=== PATIENT | male | born 1940 | race Caucasian/White ===

== ENCOUNTER 2016-07-20 14:09 | Observation (INO) | payer MEDICARE ==
[2016-07-20] MEDS ORDERED: Aspirin 81 MG Tab.Chew PO ONE (14:12)
[2016-07-20] MEDS ORDERED: Sodium Chloride 0.9% 10 ML Syringe FLUSH PRN (14:12)
[2016-07-20] MEDS ORDERED: Sodium Chloride 0.9% 2.5 ML Syringe FLUSH PRN (14:12)
[2016-07-20] MEDS ORDERED: Famotidine 20 MG/2 ML SDV IVPUSH ONE (14:12)
[2016-07-20] MEDS ORDERED: Ketorolac 30 MG/ML SDV IVPUSH ONE (14:12)
[2016-07-20] MEDS: Nitroglycerin 0.4 MG Tab.SL SL SCH ×2 (14:51→18:39)
--- NOTE | 2016-07-20 15:04 | EDM.PDOC ---
<Dharmesh Thomas - Last Filed: 07/20/16 15:39> ED HISTORY OF PRESENT ILLNESS - General Chief Complaint: Cardiovascular Problem Stated Complaint: CHEST PAINS Time Seen by Provider: 07/20/16 14:10 Source of Information: Reports: Patient History Limitations: Reports: No limitations - History of Present Illness INITIAL COMMENTS - FREE TEXT/NARRATIVE: History of present illness: [76 year old male was in dialysis and started having pain in left shoulder. They subsequently discontinued dialysis and sent him here to be evaluated further. Patient has a known history of CABG as well as a bout of pericarditis. Patient indicates his CABG was a four-vessel bypass and then subsequently he later had to have 2 stents placed. Patient has had this pain in the past with one nitroglycerin relieving the pain. Patient had left shoulder pain and a cough before dialysis and they elected not to intervene but sent him here for intervention and further evaluation.] Review of systems: As per history of present illness and below otherwise all systems reviewed and negative. Past medical history: As per history of present illness and as reviewed below otherwise noncontributory. Surgical history: As per history of present illness and as reviewed below otherwise noncontributory. Social history: No reported history of drug or alcohol abuse. Family history: As per history of present illness and as reviewed below otherwise noncontributory. Physical exam: HEENT: Atraumatic, normocephalic, pupils reactive, negative for conjunctival pallor or scleral icterus, mucous membranes moist, throat clear, neck supple, nontender, trachea midline. Lungs: Clear to auscultation, breath sounds equal bilaterally, chest nontender. Heart: S1S2, regular, negative for clicks, rubs, or JVD. Abdomen: Soft, nondistended, nontender. Negative for masses or hepatosplenomegaly. Negative for costovertebral tenderness. Pelvis: Stable nontender. Genitourinary: Deferred. Rectal: Deferred. Extremities: Atraumatic, negative for cords or calf pain. Neurovascular unremarkable. Neuro: Awake, alert, oriented. Cranial nerves II through XII unremarkable. Cerebellum unremarkable. Motor and sensory unremarkable throughout. Exam nonfocal. Nitroglycerin given to patient secondary to efficacy in the past with left shoulder pain. At this time patient is equivocal and his indication of pain relief. He indicates to myself that it is significantly better yet he tells the nurse that is unchanged he also has told the attending physician that he is pain -free. Dr. King evaluated the EKG and felt that the EKG was a concerning for an acute event. Diagnostics: [CBC, CMP, BNP, troponin, chest x-ray] Therapeutics: [Nitroglycerin, Hep-Lock, normal saline bolus, morphine] Impression: [Chest pain, left lower lobe infiltrate] Plan: [Admit for observation] Definitive disposition and diagnosis as appropriate pending reevaluation and review of above. - Related Data Home Meds: Home Meds Acetaminophen [Acetaminophen ER] 650 mg PO TID PRN 07/20/16 [History] Amino Acids/Protein Hydrolys [Prosource No Carb Liquid Pkt] 30 ml PO TID [History] Ascorbate Calcium [Vitamin C] 500 mg PO DAILY 07/20/16 [History] Aspirin [Halfprin] 81 mg PO DAILY 07/20/16 [History] Biotin/FA/Vit C/Vit B Complex [Nephrocaps] 1 cap PO DAILY 07/20/16 [History] Clopidogrel [Plavix] 75 mg PO DAILY 07/20/16 [History] Loperamide [Imodium AD] 2 mg PO ASDIRECTED PRN 07/20/16 [History] Nitroglycerin 0.4 mg SL ASDIRECTED PRN 07/20/16 [History] Pantoprazole Sodium [Protonix] 40 mg PO DAILY 07/20/16 [History] Petrolatum,White [Vaseline] 1 dose TP PRN 07/20/16 [History] ED ROS GENERAL - Review of Systems Review Of Systems: See Below ED EXAM, GENERAL - Physical Exam Exam: See Below (History of present illness) Course - Vital Signs Last Recorded V/S: Last Vital Signs Temp 36.7 C 07/20/16 14:11 Pulse 62 07/20/16 15:07 Resp 18 07/20/16 15:07 BP 111/52 L 07/20/16 15:07 Pulse Ox 96 07/20/16 15:07 - Orders/Labs/Meds Orders: Active Orders 24 hr Category Date Time Status Patient Status [ADT] Stat ADT 07/20/16 15:41 Active EKG Documentation Completion [RC] STAT Care 07/20/16 14:14 Active Levofloxacin/Dextrose 5%-Water [Levaquin in D5W 750 MG/ Med 07/20/16 15:29 Active 150 ML] 750 mg Premix Bag 1 bag IV ONETIME Sodium Chloride 0.9% [Normal Saline] 1,000 ml Med 07/20/16 15:11 Active IV .Bolus Sodium Chloride 0.9% [Saline Flush] Med 07/20/16 14:12 Active 10 ml FLUSH ASDIRECTED PRN Sodium Chloride 0.9% [Saline Flush] Med 07/20/16 14:12 Active 2.5 ml FLUSH ASDIRECTED PRN Saline Lock Insert [OM.PC] Stat Oth 07/20/16 14:12 Ordered Medication Orders Sodium Chloride (Normal Saline) 1,000 mls @ 999 mls/hr IV .Bolus ONE Stop: 07/20/16 16:11 Last Admin: 07/20/16 15:12 Dose: 999 mls/hr Levofloxacin/Dextrose 750 mg/ (Premix) 150 mls @ 100 mls/hr IV ONETIME ONE Stop: 07/20/16 16:58 Sodium Chloride (Saline Flush) 10 ml FLUSH ASDIRECTED PRN PRN Reason: Keep Vein Open Sodium Chloride (Saline Flush) 2.5 ml FLUSH ASDIRECTED PRN PRN Reason: Keep Vein Open Labs: Laboratory Tests 07/20/16 07/20/16 07/20/16 Range/Units 14:18 14:18 14:18 WBC 10.23 (4.0-11.0) K/uL RBC 3.64 L (4.50-5.90) M/uL Hgb 11.1 L (13.0-17.0) g/dL Hct 35.4 L (38.0-50.0) % MCV 97.3 (80.0-98.0) fL MCH 30.5 (27.0-32.0) pg MCHC 31.4 (31.0-37.0) g/dL RDW Std Deviation 59.2 (28.0-62.0) fl RDW Coeff of Becka 17 H (11.0-15.0) % Plt Count 127 L (150-400) K/uL MPV 11.40 (7.40-12.00) fL Neut % (Auto) 80.6 H (48.0-80.0) % Lymph % (Auto) 6.4 L (16.0-40.0) % [place] % (Auto) 10.3 (0.0-15.0) % Eos % (Auto) 2.2 (0.0-7.0) % Baso % (Auto) 0.5 (0.0-1.5) % Neut # (Auto) 8.3 H (1.4-5.7) K/uL Lymph # (Auto) 0.7 (0.6-2.4) K/uL [place] # (Auto) 1.1 H (0.0-0.8) K/uL Eos # (Auto) 0.2 (0.0-0.7) K/uL Baso # (Auto) 0.1 (0.0-0.1) K/uL Nucleated RBC % 0.0 /100WBC Nucleated RBCs # 0 K/uL INR 1.08 (0.86-1.11) Sodium 136 (136-146) mmol/L Potassium 4.3 (3.5-5.1) mmol/L Chloride 97 L (98-110) mmol/L Carbon Dioxide 26 (21-31) mmol/L BUN 24 H (6.0-23.0) mg/dL Creatinine 2.4 H (0.6-1.5) mg/dL Est Cr Clr Drug Dosing 29.00 mL/min Estimated GFR (MDRD) 26.5 ml/min Glucose 185 H (60-110) mg/dL Calcium 7.4 L (8.8-10.8) mg/dL Magnesium (1.5-2.3) mEq/L Total Bilirubin 0.8 (0.1-1.5) mg/dL AST 25 (5-40) IU/L ALT 17 (8-54) IU/L Alkaline Phosphatase 121 (40-150) Troponin I (0.0-0.29) NG/ML B-Natriuretic Peptide (<100) PG/ML Total Protein 7.0 (6.0-8.0) g/dL Albumin 3.3 L (3.4-4.8) g/dL Globulin 3.7 H (2.0-3.5) g/dL Albumin/Globulin Ratio 0.9 L (1.3-2.8) Amylase 36 (10-90) U/L Lipase 60 (7-80) U/L 04/19/17 04/19/17 04/19/17 Range/Units 14:18 14:18 14:18 WBC (4.0-11.0) K/uL RBC (4.50-5.90) M/uL Hgb (13.0-17.0) g/dL Hct (38.0-50.0) % MCV (80.0-98.0) fL MCH (27.0-32.0) pg MCHC (31.0-37.0) g/dL RDW Std Deviation (28.0-62.0) fl RDW Coeff of Becka (11.0-15.0) % Plt Count (150-400) K/uL MPV (7.40-12.00) fL Neut % (Auto) (48.0-80.0) % Lymph % (Auto) (16.0-40.0) % [place] % (Auto) (0.0-15.0) % Eos % (Auto) (0.0-7.0) % Baso % (Auto) (0.0-1.5) % Neut # (Auto) (1.4-5.7) K/uL Lymph # (Auto) (0.6-2.4) K/uL [place] # (Auto) (0.0-0.8) K/uL Eos # (Auto) (0.0-0.7) K/uL Baso # (Auto) (0.0-0.1) K/uL Nucleated RBC % /100WBC Nucleated RBCs # K/uL INR (0.86-1.11) Sodium (136-146) mmol/L Potassium (3.5-5.1) mmol/L Chloride (98-110) mmol/L Carbon Dioxide (21-31) mmol/L BUN (6.0-23.0) mg/dL Creatinine (0.6-1.5) mg/dL Est Cr Clr Drug Dosing mL/min Estimated GFR (MDRD) ml/min Glucose (60-110) mg/dL Calcium (8.8-10.8) mg/dL Magnesium 1.2 L (1.5-2.3) mEq/L Total Bilirubin (0.1-1.5) mg/dL AST (5-40) IU/L ALT (8-54) IU/L Alkaline Phosphatase (40-150) Troponin I 0.10 (0.0-0.29) NG/ML B-Natriuretic Peptide 633 H (<100) PG/ML Total Protein (6.0-8.0) g/dL Albumin (3.4-4.8) g/dL Globulin (2.0-3.5) g/dL Albumin/Globulin Ratio (1.3-2.8) Amylase (10-90) U/L Lipase (7-80) U/L Meds: Medications Generic Name Dose Route Start Last Admin Trade Name Freq PRN Reason Stop Dose Admin Sodium Chloride 1,000 mls @ 999 mls/hr 07/20/16 15:11 07/20/16 15:12 Normal Saline IV 07/20/16 16:11 999 mls/hr .Bolus ONE Administration Levofloxacin/Dextrose 750 mg/ 150 mls @ 100 mls/hr 07/20/16 15:29 Premix IV 07/20/16 16:58 ONETIME ONE Sodium Chloride 10 ml 07/20/16 14:12 Saline Flush FLUSH ASDIRECTED PRN Keep Vein Open Sodium Chloride 2.5 ml 07/20/16 14:12 Saline Flush FLUSH ASDIRECTED PRN Keep Vein Open Discontinued Medications Generic Name Dose Route Start Last Admin Trade Name Barbara PRN Reason Stop Dose Admin Aspirin 324 mg 07/20/16 14:12 07/20/16 14:46 Aspirin PO 07/20/16 14:13 Not Given ONETIME ONE Famotidine 20 mg 07/20/16 14:12 07/20/16 14:31 Pepcid IVPUSH 07/20/16 14:13 20 mg ONETIME ONE Administration Ketorolac Tromethamine 30 mg 07/20/16 14:12 07/20/16 14:30 Toradol IVPUSH 07/20/16 14:13 30 mg ONETIME ONE Administration Morphine Sulfate 2 mg 07/20/16 15:21 07/20/16 15:27 Morphine IV 07/20/16 15:22 2 mg ONETIME ONE Administration Nitroglycerin 0.4 mg 07/20/16 14:45 07/20/16 14:51 Nitrostat SL 07/20/16 14:56 0.4 mg Q5M ALMA Administration Departure - Departure Time of Disposition: 15:39 Disposition: Admitted As Inpatient 66 Condition: good Clinical Impression: Chest pain Forms: ED Department Discharge - My Orders Last 24 Hours: My Active Orders 07/20/16 15:11 Sodium Chloride 0.9% [Normal Saline] 1,000 ml IV .Bolus - Assessment/Plan Last 24 Hours: My Active Orders 07/20/16 15:11 Sodium Chloride 0.9% [Normal Saline] 1,000 ml IV .Bolus <Deena Littlejohn - Last Filed: 07/20/16 15:55> ED HISTORY OF PRESENT ILLNESS - History of Present Illness INITIAL COMMENTS - FREE TEXT/NARRATIVE: This is Dr. Littlejohn dictating an addendum note as a supervising physician on this case. The patient was personally seen by me and evaluated and agree with history and physical as above. The patient is not the best historian and seems to vacillate on his pain and his history that makes it unclear exactly what is experiencing. He does have a history of a CABG done 4 years ago at the [facility] and recently had an admission at [facility] from July 02 to July 13 for which she was treated for fluid overload metabolic encephalopathy and his chronic renal disease. The patient resides at [facility] and they state that when he has had the shoulder pain yesterday they gave him a sublingual nitroglycerin and improved and he was also given a sublingual nitroglycerin in dialysis on Monday. The dialysis nurse stated that they did not give the nitroglycerin today because he just finished his dialysis and his blood pressure was on the low side. The patient states that he will have periods of time only will have the shoulder pain for many days in row and then other times he doesn't have the pain. He says that but since he has been here in the ED the pain is significantly improved and she is currently sleeping in the ER. All labs were reviewed and chest x-ray was also reviewed. It is unclear if this left lower lobe process infiltrate or atelectasis but to avoid and treat appropriately. The case was discussed with the hospitalist Dr. Pruitt who will admit the patient and request Levaquin to be given.
--- NOTE | 2016-07-20 15:06 | CR ---
EXAMINATION: Two-view chest (PA and Lateral views). HISTORY: Chest pain. FINDINGS: The trachea is midline. The heart is normal in size. There is a right-sided dialysis catheter noted. Median sternotomy wires are noted. There is left basilar atelectasis and/or infiltrate noted on the lateral film. Mild elevation and flattening of the left hemidiaphragm. Trace bilateral pleural effu sions are not excluded. Osseous structures appear osteopenic. IMPRESSION: 1. Left basilar atelectasis and/or infiltrate with likely a trace pleural effusion.
[2016-07-20] MEDS ORDERED: Sodium Chloride 0.9% 1,000 ML IV ONE (15:11)
[2016-07-20] MEDS ORDERED: Morphine 10 MG/ML Syringe IV ONE (15:21)
[2016-07-20] MEDS ORDERED: Levofloxacin/Dextrose 5%-Water 750 MG in Premix Bag 1 BAG IV ONE (15:29)
--- NOTE | 2016-07-20 16:02 | PCM.HP ---
H&P History of Present Illness - General Date of Service: 07/20/16 Admit Problem/Dx: L shoulder pain, LLL infiltrate Source of Information: Patient, shelter records - History of Present Illness Initial Comments - Free Text/Narative: This 76 year old male with extensive pmh including recent placement of 2 stents secondary to CAD 1 week ago, hx of 3 bypass CABG, recent diagnosis of DVT to L leg, end stage renal disease on dialysis, DM type 2, and ischemic cardiomyopathy presented to the ED today from renal dialysis for complaints of L shoulder pain. He and reports the past couple days he has had pain to L shoulder and scapula region and has been given nitro which has helped with his pain. Today the renal dialysis staff was concerned and wanted him to be evaluated in the ED. Alcides is confused at baseline and is a poor historian, he reports the nitro x1 helped with his pain and now it is only a discomfort. No dyspnea or palpitations noted. No radiation of pain. His reports this complaint of L shoulder pain has been consistent with what his cardiac pain has been. She reports in his recent hospitalization in [place], he had similar episode with negative EKG and troponins, Dr Minaya performed an angiogram which revealed blockages of one bypass and another artery, when then two new stents were placed. He reports having frequent bloody noses since discharge from [place] and reports a productive cough which started 2 or 3 days ago. No noted fevers/ chills. No abdominal pain. Does have multiple sores and abrasions to feet. 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 blistering and deep tissue injuries noted to bilateral heels. L greater than R. reports a DVT was noted to L leg during hospitalization and he was given a "clot buster". In the ED WBC 10,230, Hgb 11.1, BUN 24, Cr 2.4. Platelets 127. EKG SR rate in the 60s, LVH noted. Given 1 SL nitro which helped lower pain to 1/10. reports he is at baseline mentation, slightly confused and easily falling asleep. I did speak with her regarding code status. On [facility] paperwork we received he is noted as Code 3, DNR. But in speaking with them prior to seeing this paperwork, they both agreed they want everything done, including CPR, intubation /mechanical ventilation and medications given in the event of cardiac arrest. If it happens that he would not wake up or to be "kept alive on the ventilator" then they would not want that. So at this time he will be a FULL CODE. 1715: Dr. Pruitt notified with update on patient and pmh. He will be in to see patient shortly. Left Shoulder Pain Score (Numeric/FACES): 10 - Related Data Allergies/Adverse Reactions: Allergies Allergy/AdvReac Type Severity Reaction Status Date / Time iodine Allergy Other Verified 07/20/16 16:26 enteric coat medications Allergy Other Uncoded 07/20/16 16:26 glue Allergy Other Uncoded 07/20/16 16:26 Home Medications: Home Meds Acetaminophen [Acetaminophen ER] 650 mg PO TID PRN 07/20/16 [History] Amino Acids/Protein Hydrolys [Prosource No Carb Liquid Pkt] 30 ml PO TID [History] Ascorbate Calcium [Vitamin C] 500 mg PO DAILY 07/20/16 [History] Aspirin [Halfprin] 81 mg PO DAILY 07/20/16 [History] Biotin/FA/Vit C/Vit B Complex [Nephrocaps] 1 cap PO DAILY 07/20/16 [History] Clopidogrel [Plavix] 75 mg PO DAILY 07/20/16 [History] Loperamide [Imodium AD] 2 mg PO ASDIRECTED PRN 07/20/16 [History] Nitroglycerin 0.4 mg SL ASDIRECTED PRN 07/20/16 [History] Pantoprazole Sodium [Protonix] 40 mg PO DAILY 07/20/16 [History] Petrolatum,White [Vaseline] 1 dose TP PRN 07/20/16 [History] Past Medical History Cardiovascular History: Reports: Arrhythmia, Blood clots/VTE/DVT, CAD, Cardiomyopathy, MT, PVD, Other (see below) Other Cardiovascular History: pericarditis Respiratory History: Reports: None Gastrointestinal History: Reports: None. Denies: GERD, GI bleed Genitourinary History: Reports: Acute renal failure, Chronic renal insuffiency, Dialysis, Diabetic nephropathy Psychiatric History: Reports: None Endocrine/Metabolic History: Reports: Diabetes, type II Hematologic History: Reports: Anemia, Iron deficiency Oncologic (Cancer) History: Reports: None - Past Surgical History Cardiovascular Surgical History: Reports: Coronary artery bypass, Coronary artery stent, Vascular surgery (L leg) GI Surgical History: Reports: None Musculoskeletal Surgical History: Reports: Other (see below) Other Musculoskeletal Surgeries/Procedures:: left fifth toe amputation Social & Family History - Family History Family Medical History: Noncontributory - Tobacco Use Smoking Status *Q: Never Smoker - Caffeine Use Caffeine Use: Reports: Coffee - Recreational Drug Use Recreational Drug Use: No - Living Situation & Occupation Living situation: Reports: Occupation: retired H&P Review of Systems - Review of Systems: Review Of Systems: See Below General: Denies: fever, chills, malaise HEENT: Reports: no symptoms. Denies: headaches, sinus congestion, sore throat Pulmonary: Reports: Cough, Sputum (blood tinged (has been having bloody noses) and green in color). Denies: Shortness of Breath Cardiovascular: Reports: chest pain (L shoulder and scapular pain), dyspnea on exertion, edema. Denies: palpitations, lightheadedness, syncope Gastrointestinal: Reports: No symptoms. Denies: Black stool, Bloody stool, Nausea, Vomiting Genitourinary: Reports: no symptoms. Denies: dysuria, frequency, burning Skin: Reports: wound (sacral ulcer(healing), new heel and foot abrasions. ) Neurological: Reports: Confusion ( reports him at baseline) Hematologic/Lymphatic: Reports: anemia Immunologic: Reports: no symptoms Exam - Exam Exam: See Below - Vital Signs Vital Signs: Last Vital Signs Temp 98.0 F 07/20/16 14:11 Pulse 62 07/20/16 15:07 Resp 18 07/20/16 15:07 BP 111/52 L 07/20/16 15:07 Pulse Ox 96 07/20/16 15:07 Weight: 78.3 kg - Exam General: alert, oriented, cooperative HEENT: Conjunctiva clear, Mucosa moist & pink, Posterior pharynx clear, Pupils reactive Neck: supple, trachea midline. No: lymphadenopathy, JVD Lungs: Clear to auscultation, Normal respiratory effort Cardiovascular: regular rate, regular rhythm, normal S1, normal S2. No: irregular rhythm, systolic murmur Abdomen: normal bowel sounds, soft. No: organomegaly, tenderness Extremities: edema (+2 pitting to L lower leg, ankle and foot +2 pitting to R ankle and foot.). No: normal pulses Peripheral Pulses: 1+: posterior tibial (L), posterior tibial (R), dorsalis pedis (L), dorsalis pedis (R) Skin: warm, dry, wound (healing sacral ulcer, blanchable, small abrasion noted, no drainage. Open region noted to sacral cleft and tape [place] noted from past dressings surrounding wound. L heel noted to be red, non blanchable with blister. L heel purple blue deep tissue injury noted, small blister. Blood filled blisters x 3 noted to L anterior ankle. Scattered abrasions noted to multiple toes.). No: intact Neuro Extensive - Mental Status: alert, normal mood/affect (per , she states he is baseline mentation, alert, but slightly disoriented and will easily forget direction), normal cognition. No: oriented x3 Neuro Extensive - Motor, Sensory, Reflexes: CN II-XII intact. No: normal gait ( weak and deconditioned due to recent hospitalization) Psychiatric: alert, normal affect, normal mood - Patient Data Result Diagrams: 07/20/16 14:18 07/20/16 14:18 EKG INTERPRETATION EKG Date: 07/20/16 Time: 14:09 Rhythm: NSR Rate (beats/min): 66 [place]: LAD-left axis deviation P-wave: present QRS: LBBB ST-T: elevated (V1-3) Comparison: NA - no prior EKG *Q Meaningful Use (ADM) - VTE *Q VTE Criteria *Q: - VTE Risk Assess *Q Each Risk Factor Represents 1 Point: History of Prior Major Surgery, Swollen Legs, Current, Serious Lung Disease Including Pneumonia, Less than 1 Month Total Score 1 Point Risk Factors: 3 Each Risk Factor Represents 2 Points: None Total Score 2 Point Risk Factors: 0 Each Risk Factor Represents 3 Points: Age 75 Years or Greater, History Superficial Venous Thrombosis, DVT or PE Total Score 3 Point Risk Factors: 6 Each Risk Factor Represents 5 Points: None Total Score 5 Point Risk Factors: 0 Venous Thromboembolism Risk Factor Score *Q: 9 - Stroke *Q Stroke Criteria *Q: - AMI *Q AMI Criteria *Q: - Problem List (1) Chest pain SNOMED Code(s): 37974795 ICD Code: R07.9 - CHEST PAIN, UNSPECIFIED Status: Acute Current Visit: Yes (2) HCAP (healthcare-associated pneumonia) SNOMED Code(s): 235560867 ICD Code: J18.9 - PNEUMONIA, UNSPECIFIED ORGANISM Status: Acute Current Visit: Yes (3) Hx of CABG SNOMED Code(s): 828668739, 221281410 ICD Code: Z95.1 - PRESENCE OF AORTOCORONARY BYPASS GRAFT Status: Chronic Current Visit: Yes (4) History of coronary artery stent placement SNOMED Code(s): 177416796, 039997556 ICD Code: Z95.5 - PRESENCE OF CORONARY ANGIOPLASTY IMPLANT AND GRAFT Status : Chronic Current Visit: Yes Problem Details: 2 stents placed July 2016 in [place] (5) DM type 2 (diabetes mellitus, type 2) SNOMED Code(s): 49871227 ICD Code: E11.9 - TYPE 2 DIABETES MELLITUS WITHOUT COMPLICATIONS Status: Chronic Current Visit: Yes Qualifiers: Diabetes mellitus complication status: with kidney complications Diabetes mellitus complication detail: with nephropathy Diabetes mellitus intermediate school teacher insulin use: without fci use Qualified Code(s): E11.21 - Type 2 diabetes mellitus with diabetic nephropathy (6) End stage renal disease on dialysis SNOMED Code(s): 302624602 ICD Code: N18.6 - END STAGE RENAL DISEASE; Z99.2 - DEPENDENCE ON RENAL DIALYSIS Status: Chronic Current Visit: Yes (7) Ischemic cardiomyopathy SNOMED Code(s): 638457103 ICD Code: I25.5 - ISCHEMIC CARDIOMYOPATHY Status: Chronic Current Visit: Yes (8) Neuropathy due to type 2 diabetes mellitus SNOMED Code(s): 010970477796020, 222705000379932 ICD Code: E11.40 - TYPE 2 DIABETES MELLITUS WITH DIABETIC NEUROPATHY, UNSP Status: Chronic Current Visit: Yes (9) CAD (coronary artery disease) SNOMED Code(s): 24694990 ICD Code: I25.10 - ATHSCL HEART DISEASE OF [place] CORONARY ARTERY W/O ANG PCTRS Status: Chronic Current Visit: Yes Qualifiers: Coronary Disease-Associated Artery/Lesion type: bypass graft [place] vs. transplanted heart: [place] heart Associated angina: with stable angina Qualified Code(s): I25.708 - Atherosclerosis of coronary artery bypass graft(s) , unspecified, with other forms of angina pectoris (10) PVD (peripheral vascular disease) SNOMED Code(s): 029743064 ICD Code: I73.9 - PERIPHERAL VASCULAR DISEASE, UNSPECIFIED Status: Chronic Current Visit: Yes (11) Heel ulcer SNOMED Code(s): 249699980 ICD Code: L97.409 - NON-PRS CHRONIC ULCER OF UNSP HEEL AND MIDFOOT W UNSP SEVERT Status: Acute Current Visit: Yes Qualifiers: Laterality: unspecified laterality Non-pressure ulcer stage: unspecified non-pressure ulcer stage Qualified Code(s): L97.409 - Non-pressure chronic ulcer of unspecified heel and midfoot with unspecified severity (12) Sacral ulcer SNOMED Code(s): 52250682, 739427017 ICD Code: L98.499 - NON-PRESSURE CHRONIC ULCER OF SKIN OF SITES W UNSP SEVERITY Status: Acute Current Visit: Yes Qualifiers: Non-pressure ulcer stage: limited to breakdown of skin Qualified Code(s): L98.491 - Non-pressure chronic ulcer of skin of other sites limited to breakdown of skin Problem List Initiated/Reviewed/Updated: Yes Orders Last 24hrs: Medication Orders Sodium Chloride (Normal Saline) 1,000 mls @ 999 mls/hr IV .Bolus ONE Stop: 07/20/16 16:11 Last Admin: 07/20/16 15:12 Dose: 999 mls/hr Levofloxacin/Dextrose 750 mg/ (Premix) 150 mls @ 100 mls/hr IV ONETIME ONE Stop: 07/20/16 16:58 Sodium Chloride (Saline Flush) 10 ml FLUSH ASDIRECTED PRN PRN Reason: Keep Vein Open Sodium Chloride (Saline Flush) 2.5 ml FLUSH ASDIRECTED PRN PRN Reason: Keep Vein Open Assessment/Plan Comment:: This 76 year old male admitted for chest pain and pneumonia 1. Chest pain: Serial troponins. Monitor on Telemetry. EKG in am. Obtain records from recent hospitalization in [place]. 2. HCAP: Will treat with Levaquin, Zosyn and Vancomycin all renal dosing due to recent hospitalization. 3. CKD: Monitor renal function. Scheduled for dialysis on Monday. 4. CAD: Continue Plavix and ASA 5. Skin ulcers: heel pads ordered to protect heels. Frequent repositioning. Dressing changes as per previous orders from [facility]. 6. Ischemic cardiomyopathy: Daily weights and strict I/O VTE: SCDs only due to thrombocytopenia and recent nose bleeds. Discussed with Dr. Pruitt. Dispo: 1-2 days pending improvement. Treatment plan reviewed and discussed with Dr Pruitt. He has seen assessed and visited with patient and family.
[2016-07-20] MEDS ORDERED: Nitroglycerin 0.4 MG Tab.SL SL PRN (16:07)
[2016-07-20] MEDS ORDERED: Hydrocolloid Dressing 4x4 Bandage TOP PRN (18:08)
[2016-07-20] MEDS ORDERED: Magnesium Sulfate/Water 2 GM in Premix Bag 1 BAG IV ONE (18:09)
--- NOTE | 2016-07-20 18:15 | PCM.SN ---
- Free Text/Narrative Note: I spoke with patient and his and I spoke with Imani. He had dialysis today. I also spoke with Dr Fair, cardiology. We have decided to keep the patient here for now realizing that he may need to be transferred if hospitalization needed past Monday am. He is scheduled for dialysis on Monday. Will attempt to talk to his cardiology, Dr. Minaya , tomorrow.
[2016-07-20] MEDS: Piperacillin/Tazobactam 2.25 GM in Sodium Chloride 0.9% 50 ML IV SCH (18:32)
[2016-07-20] MEDS ORDERED: SODIUM CHLORIDE 0.9% IV SCH (19:00)
[2016-07-20] MEDS ORDERED: VANCOMYCIN IV SCH (19:00)
[2016-07-20] MEDS: Acetaminophen 325 MG Tab PO PRN (20:54)
[2016-07-20] MEDS: [UNRECOGNIZED DRUG - REMARK] PO SCH (20:59)
[2016-07-20] MEDS: Insulin Aspart 100 Units/ML 3 ML Pen SUBCUT SCH (22:03)
--- NOTE | 2016-07-21 00:46 | CONS ---
DATE OF CONSULTATION: DATE OF : 1940 PRIMARY CARE PHYSICIAN: None PCP REASON FOR CONSULTATION: Abnormal EKG. HISTORY OF PRESENT ILLNESS: This is a 76-year-old male, with history of hypertension, hyperlipidemia, diabetes, chronic kidney disease stage V, CAD status post CABG x4, recently admitted to [facility] in [place] due to respiratory failure from decompensated heart failure, ischemic cardiomyopathy, ejection fraction 25% requiring intubation and he just got out from the hospital last week and has been in the rehab. This morning, when he had a dialysis session, he was complaining about coughing and also shoulder pain on the left-sided shoulder and he mentioned that his shoulder has been hurting for 2 to 3 days. It seemed to be constant, 5/10 from pain scale. No radiation. No palpitation. No shortness of breath, but he has noticed that he has been coughing more. It has been going on for a month. No fever. No palpitation. No feeling dizzy. MEDICATIONS: From [facility] on July 13 should be including Nephrocaps 1 tablet a day, Bystolic 5 mg once a day, Tylenol, Protonix 40 mg once a day, Plavix 75 mg once a day, and aspirin 81 mg. When he was there, he was found to have a non-ST elevation MT as well. Troponin was peaking at 0.5. Echocardiogram was also done and found that his ejection fraction was down to 25% and he also underwent the Lexiscan. It showed anterior wall scar with inferior wall ischemia, so he underwent a coronary angiogram, which showed occluded LOJA to LAD, as well as mid RCA 80% blockage, PDA also 90% blockage. He has a stent placed in RCA as well as LAD and then the dialysis catheter was inserted and he also was recommended to have permanent dialysis. However, fistula has not been set up yet. He still had a dialysis catheter on his chest wall on the right side. He said that while he came to the emergency room, he got a nitroglycerin and it seems like the pain at his right shoulder seemed to be improved, and currently, it has gone away. Troponin has been negative, 0.1. EKG show probably a left bundle-branch block pattern. However, it is not very typical and there was some ST abnormalities in V1 and V2 and when they are compared to the old EKG from [facility], it seemed to be similar to previous EKG. PAST MEDICAL HISTORY: Includin. History of CAD status post CABG x4, in [facility] in September 2012. At that time, he has a LOJA to LAD, SVG to OM1, OM2, as well as SVG to PDA and also in December 2012, he underwent the bypass graft to his left extremity from common femoral artery to anterior tibial arteries and also has the left superficial femoral arteries stent as well as the popliteal artery and posterior cerebral artery stent. 2. 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 3. Diabetes. 4. Hypertension. 5. Hyperlipidemia. 6. Chronic kidney disease pending permanent hemodialysis. SOCIAL HISTORY AND FAMILY HISTORY: Noncontributory. Never smoked, drinking coffee, no illicit drug use, currently stays in the rehab facility. REVIEW OF SYSTEMS: Except indicated in the HPI, a 12-point review of system has been negative. ALLERGIES: He is allergic to iodine and glue, enteric coated medication. PHYSICAL EXAMINATION: VITAL SIGNS: Blood pressure 120/51, heart rate of 54, respirations 20, and O2 saturation 97 on room air. HEENT: Mild pale, mild dry. I did not appreciate JVD. HEART: Normal S1, S2. No murmur. Regular rate and rhythm. LUNGS: Minimal crackle bilaterally. EXTREMITIES: Legs, edema bilaterally with some open wound. RADIOLOGIC INVESTIGATION: Chest x-ray show possible pneumonia on the left basilar bases. EKG on July 20, 2016 at 2:00 p.m. shows probably intraventricular conduction delay, probably left bundle-branch block pattern with ST abnormality in V1 and V2 as well as ST abnormality, T-wave inversion V4 to V6. It seemed to be persistent from the previous EKG. LABORATORY INVESTIGATIONS: CBC showed WBC 10, hematocrit 35, hemoglobin 11, platelets 127, INR 1.08, sodium 136, potassium 4.3, chloride 97, bicarb 26, BUN 24, and creatinine 2.4. Troponin 0.01. BNP is 683. Lipase is negative. Amylase is negative. ASSESSMENT AND PLAN: This is a 76-year-old male, history of coronary artery disease status post coronary artery bypass grafting x4, recent non-ST elevation myocardial infarction with LAD stent as well as the RCA stent and PDA and PTCA, on dual anti-platelet agent, presented to the hospital with probable hospital-acquired pneumonia with left shoulder pain, that questioning an unstable angina. Currently, troponin has been negative. An EKG seemed to be unchanged from the previous EKG. I would recommend to continue aspirin and Plavix at least for a year because of the recent stent placement and cycle cardiac enzymes. Repeat EKG tomorrow morning. He also found to have cardiomyopathy ejection fraction 25%, but with the recent LAD stent, he may need to be waited for 3 months and reassessed for his echo for left ventricular ejection fraction for qualification for implantable cardioverter-defibrillator. Regarding the medication for cardiomyopathy, his heart rate seemed to be slow and he has chronic kidney disease pending permanent dialysis. He may not be eligible for beta-locker as well as JOHN inhibitor. However, if the enzyme become positive, he may need to be looked up by the coronary angiogram again. I will follow the patient. JUSTICE HOGAN /[id number]
[2016-07-21] MEDS: Piperacillin/Tazobactam 2.25 GM in Sodium Chloride 0.9% 50 ML IV SCH ×3 (02:13→10:56)
[2016-07-21] MEDS: Acetaminophen 325 MG Tab PO PRN (03:40)
[2016-07-21] MEDS: [UNRECOGNIZED DRUG - REMARK] PO SCH (06:32)
[2016-07-21] MEDS: Insulin Aspart 100 Units/ML 3 ML Pen SUBCUT SCH ×2 (06:33→11:58)
[2016-07-21 08:21] VITALS: BP 117/55
[2016-07-21] MEDS ORDERED: Magnesium Sulfate/Water 2 GM in Premix Bag 1 BAG IV ONE (09:00)
[2016-07-21] MEDS ORDERED: Ascorbic Acid 500 MG Tab PO SCH (09:00)
[2016-07-21] MEDS ORDERED: Pantoprazole 40 MG Tab.CR PO SCH (09:00)
[2016-07-21] MEDS ORDERED: Clopidogrel 75 MG Tab PO SCH (09:00)
[2016-07-21] MEDS ORDERED: Aspirin 81 MG Tab.EC PO SCH (09:00)
[2016-07-21] MEDS ORDERED: NEPHROCAPS PO SCH (09:00)
[2016-07-21] MEDS ORDERED: Calcium Gluconate 10% 1 GM/10 ML SDV IV ONE (09:01)
--- NOTE | 2016-07-21 09:20 | PCM.DCSUM1 ---
Discharge Summary - Hospital Course Brief History: This 76 year old male with extensive pmh including recent placement of 2 stents secondary to CAD 1 week ago, hx CABG x54, recent diagnosis of DVT to L leg (tibial), end stage renal disease on dialysis, DM type 2, and ischemic cardiomyopathy with LV EF 25% presented to the ED 2016 from renal dialysis for complaints of L shoulder pain. He and reports the past couple days he has had pain to L shoulder and scapula region and has been given nitro which has helped with his pain. Yesterday the renal dialysis staff was concerned and wanted him to be evaluated in the ED. Alcides is confused at baseline and is a poor historian, he reports the nitro x1 helped with his pain and now it is only a discomfort. No dyspnea or palpitations noted. No radiation of pain. His reports this complaint of L shoulder pain has been consistent with what his cardiac pain has been. She reports in his recent hospitalization in [place], he had similar episode with negative EKG and troponins, Dr Minaya performed an angiogram which revealed blockages of one bypass and another artery, when then two new stents were placed. He reports having frequent bloody noses since discharge from [place] and reports a productive cough which started 2 or 3 days ago. No noted fevers/chills. No abdominal pain. Does have multiple sores and abrasions to feet. 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 blistering and deep tissue injuries noted to bilateral heels. L greater than R. reports a DVT was noted to L leg during hospitalization and he was given a "clot buster". In the ED WBC 10, 230, Hgb 11.1, BUN 24, Cr 2.4. Platelets 127. EKG SR rate in the 60s, LVH noted. Given 1 SL nitro which helped lower pain to 1/10. reports he is at baseline mentation, slightly confused and easily falling asleep. I did speak with her regarding code status. On [facility] paperwork we received he is noted as Code 3, DNR. But in speaking with them prior to seeing this paperwork, they both agreed they want everything done, including CPR, intubation/mechanical ventilation and medications given in the event of cardiac arrest. If it happens that he would not wake up or to be "kept alive on the ventilator" then they would not want that. So at this time he will be a FULL CODE. - Discharge Data Discharge Date: 07/21/16 Discharge Disposition: DC/Tfer to SNF 03 Condition: Good - Discharge Diagnosis/Problem(s) (1) Chest pain SNOMED Code(s): 77365690 ICD Code: R07.9 - CHEST PAIN, UNSPECIFIED Status: Acute Current Visit: Yes Qualifiers: Chest pain type: unspecified Qualified Code(s): R07.9 - Chest pain, unspecified (2) HCAP (healthcare-associated pneumonia) SNOMED Code(s): 400068066 ICD Code: J18.9 - PNEUMONIA, UNSPECIFIED ORGANISM Status: Acute Current Visit: Yes (3) Hx of CABG SNOMED Code(s): 098980819, 274814809 ICD Code: Z95.1 - PRESENCE OF AORTOCORONARY BYPASS GRAFT Status: Chronic Current Visit: Yes (4) History of coronary artery stent placement SNOMED Code(s): 105388656, 052770672 ICD Code: Z95.5 - PRESENCE OF CORONARY ANGIOPLASTY IMPLANT AND GRAFT Status : Chronic Current Visit: Yes Problem Details: 2 stents placed July 2016 in [place] (5) DM type 2 (diabetes mellitus, type 2) SNOMED Code(s): 18768337 ICD Code: E11.9 - TYPE 2 DIABETES MELLITUS WITHOUT COMPLICATIONS Status: Chronic Current Visit: Yes Qualifiers: Diabetes mellitus complication status: with kidney complications Diabetes mellitus complication detail: with nephropathy Diabetes mellitus extermination supervisor insulin use: without extermination supervisor use Qualified Code(s): E11.21 - Type 2 diabetes mellitus with diabetic nephropathy (6) End stage renal disease on dialysis SNOMED Code(s): 595748032 ICD Code: N18.6 - END STAGE RENAL DISEASE; Z99.2 - DEPENDENCE ON RENAL DIALYSIS Status: Chronic Current Visit: Yes (7) Ischemic cardiomyopathy SNOMED Code(s): 139303395 ICD Code: I25.5 - ISCHEMIC CARDIOMYOPATHY Status: Chronic Current Visit: Yes (8) Neuropathy due to type 2 diabetes mellitus SNOMED Code(s): 405929108717095, 482617636253926 ICD Code: E11.40 - TYPE 2 DIABETES MELLITUS WITH DIABETIC NEUROPATHY, UNSP Status: Chronic Current Visit: Yes (9) CAD (coronary artery disease) SNOMED Code(s): 51406052 ICD Code: I25.10 - ATHSCL HEART DISEASE OF [place] CORONARY ARTERY W/O ANG PCTRS Status: Chronic Current Visit: Yes Qualifiers: Coronary Disease-Associated Artery/Lesion type: bypass graft [place] vs. transplanted heart: [place] heart Associated angina: with stable angina Qualified Code(s): I25.708 - Atherosclerosis of coronary artery bypass graft(s) , unspecified, with other forms of angina pectoris (10) PVD (peripheral vascular disease) SNOMED Code(s): 736511153 ICD Code: I73.9 - PERIPHERAL VASCULAR DISEASE, UNSPECIFIED Status: Chronic Current Visit: Yes (11) Heel ulcer SNOMED Code(s): 359770205 ICD Code: L97.409 - NON-PRS CHRONIC ULCER OF UNSP HEEL AND MIDFOOT W UNSP SEVERT Status: Acute Current Visit: Yes Qualifiers: Laterality: unspecified laterality Non-pressure ulcer stage: unspecified non-pressure ulcer stage Qualified Code(s): L97.409 - Non-pressure chronic ulcer of unspecified heel and midfoot with unspecified severity (12) Sacral ulcer SNOMED Code(s): 84222162, 273019894 ICD Code: L98.499 - NON-PRESSURE CHRONIC ULCER OF SKIN OF SITES W UNSP SEVERITY Status: Acute Current Visit: Yes Qualifiers: Non-pressure ulcer stage: limited to breakdown of skin Qualified Code(s): L98.491 - Non-pressure chronic ulcer of skin of other sites limited to breakdown of skin - Patient Summary/Data Consults: Consultations 07/20/16 18:03 Consult to Physician [CONS] Routine - Discharge Plan Prescriptions/Med Rec: Insulin Aspart [NovoLOG] See Protocol SUBCUT TIDAC #2 pen Levofloxacin [Levaquin] 500 mg PO Q48H #3 tablet Home Medications: Home Meds Acetaminophen [Acetaminophen ER] 650 mg PO Q4H PRN 07/20/16 [History] Acetaminophen [Tylenol Extra Strength] 500 mg PO QID PRN 07/20/16 [History] Amino Acids/Protein Hydrolys [Prosource No Carb Liquid Pkt] 30 ml PO TID [History] Ascorbate Calcium [Vitamin C] 500 mg PO DAILY 07/20/16 [History] Aspirin [Halfprin] 81 mg PO DAILY 07/20/16 [History] Biotin/FA/Vit C/Vit B Complex [Nephrocaps] 1 cap PO DAILY 07/20/16 [History] Clopidogrel [Plavix] 75 mg PO BEDTIME 07/20/16 [History] Loperamide [Imodium AD] 2 mg PO ASDIRECTED PRN 07/20/16 [History] Nebivolol [Bystolic] 5 mg PO BEDTIME 07/20/16 [History] Nitroglycerin 0.4 mg SL ASDIRECTED PRN 07/20/16 [History] Pantoprazole Sodium [Protonix] 40 mg PO DAILY 07/20/16 [History] Petrolatum,White [Vaseline] 1 dose TP BEDTIME PRN 07/20/16 [History] Insulin Aspart [NovoLOG] See Protocol SUBCUT TIDAC #2 pen 07/21/16 [Rx] Levofloxacin [Levaquin] 500 mg PO Q48H #3 tablet 07/21/16 [Rx] Referrals: Tobin Pineda MD [Physician] - 07/25/16 (next [facility] Rounds) Molina Gillis MD [Physician] - - Discharge Summary/Plan Comment DC Time >30 min.: No Discharge Summary/Plan Comment: Discharge Diagnoses: Chest pain-resolved ACS ruled out HCAP Hx CABG CAD DM type 2 End stage renal disease on dialysis Ischemic cardiomyopathy Sacral and heel ulcers Alcides was admitted for chest pain. ACS was ruled out. Dr Gillis consulted and evluated patient. Troponins remained negative and patient has not had any further shoulder or scapular pain. He is more alert this morning and eager to be back at [facility] with his recliner. Afebrile, WBC this morning 6,000. EKG remains unchanged. Dr. Gillis agrees with discharge and encourages follow up ECHO in 3 months to evaluate for qualification for implantable cardioverter-defibrillator. Will continue Plavix and ASA. I spoke with Dr. Pineda PCP at [facility] regarding admission and plan. With HCAP, will continue Levaquin for 3 more doses. Will also start Novolog SSI low dose at [facility]. He is to return to ED or clinic if concerns should arise. Continue dialysis as previously ordered. - General Info Date of Service: 07/21/16 Admission Dx/Problem (Free Text: L shoulder pain, LLL infiltrate Subjective Update: Doing well this am, sitting up in chair ate all of his breakfast. at bedside and reports he is doing a lot better than yesterday, has no further pain to his shoulder or scapula. Denies SOB or palpitations. Wanting to go back to his comfortable chair. Functional Status: Reports: pain controlled, tolerating diet, ambulating, urinating - Review of Systems HEENT: Reports: sinus congestion Pulmonary: Denies: shortness of breath Cardiovascular: Reports: Edema. Denies: Chest Pain, Palpitations Gastrointestinal: Denies: Abdominal pain, Nausea, Vomiting Genitourinary: Reports: no symptoms. Denies: dysuria, frequency, burning Skin: Reports: other (wound to sacral region is tender if sitting too long) - Patient Data Vitals - Most Recent: Last Vital Signs Temp 98.4 F 07/21/16 08:00 Pulse 55 L 07/21/16 08:00 Resp 18 07/21/16 08:00 BP 117/55 L 07/21/16 08:00 Pulse Ox 98 07/21/16 08:00 Weight - Most Recent: 81.2 kg I&O - Last 24 hours: Intake & Output 07/20/16 07/21/16 07/21/16 22:59 06:59 14:59 Intake Total 500 1007 Balance 500 1007 Lab Results - Last 24 hrs: Laboratory Results - last 24 hr 07/20/16 07/20/16 07/21/16 Range/Units 20:10 21:57 03:59 WBC 6.57 (4.0-11.0) K/uL RBC 3.05 L (4.50-5.90) M/uL Hgb 9.4 L (13.0-17.0) g/dL Hct 29.8 L (38.0-50.0) % MCV 97.7 (80.0-98.0) fL MCH 30.8 (27.0-32.0) pg MCHC 31.5 (31.0-37.0) g/dL RDW Std Deviation 59.6 (28.0-62.0) fl RDW Coeff of Becka 17 H (11.0-15.0) % Plt Count 120 L (150-400) K/uL MPV 10.40 (7.40-12.00) fL Neut % (Auto) 73.8 (48.0-80.0) % Lymph % (Auto) 8.4 L (16.0-40.0) % [place] % (Auto) 11.9 (0.0-15.0) % Eos % (Auto) 5.0 (0.0-7.0) % Baso % (Auto) 0.9 (0.0-1.5) % Neut # (Auto) 4.9 (1.4-5.7) K/uL Lymph # (Auto) 0.6 (0.6-2.4) K/uL [place] # (Auto) 0.8 (0.0-0.8) K/uL Eos # (Auto) 0.3 (0.0-0.7) K/uL Baso # (Auto) 0.1 (0.0-0.1) K/uL Nucleated RBC % 0.0 /100WBC Nucleated RBCs # 0 K/uL Sodium (136-146) mmol/L Potassium (3.5-5.1) mmol/L Chloride (98-110) mmol/L Carbon Dioxide (21-31) mmol/L BUN (6.0-23.0) mg/dL Creatinine (0.6-1.5) mg/dL Est Cr Clr Drug Dosing mL/min Estimated GFR (MDRD) ml/min Glucose (60-110) mg/dL POC Glucose 187 H (60-110) mg/dL Calcium (8.8-10.8) mg/dL Phosphorus (2.4-4.7) mg/dL Magnesium (1.5-2.3) mEq/L Troponin I 0.10 (0.0-0.29) NG/ML 07/21/16 07/21/16 07/21/16 Range/Units 03:59 03:59 03:59 WBC (4.0-11.0) K/uL RBC (4.50-5.90) M/uL Hgb (13.0-17.0) g/dL Hct (38.0-50.0) % MCV (80.0-98.0) fL MCH (27.0-32.0) pg MCHC (31.0-37.0) g/dL RDW Std Deviation (28.0-62.0) fl RDW Coeff of Becka (11.0-15.0) % Plt Count (150-400) K/uL MPV (7.40-12.00) fL Neut % (Auto) (48.0-80.0) % Lymph % (Auto) (16.0-40.0) % [place] % (Auto) (0.0-15.0) % Eos % (Auto) (0.0-7.0) % Baso % (Auto) (0.0-1.5) % Neut # (Auto) (1.4-5.7) K/uL Lymph # (Auto) (0.6-2.4) K/uL [place] # (Auto) (0.0-0.8) K/uL Eos # (Auto) (0.0-0.7) K/uL Baso # (Auto) (0.0-0.1) K/uL Nucleated RBC % /100WBC Nucleated RBCs # K/uL Sodium 135 L (136-146) mmol/L Potassium 4.0 (3.5-5.1) mmol/L Chloride 99 (98-110) mmol/L Carbon Dioxide 25 (21-31) mmol/L BUN 29 H (6.0-23.0) mg/dL Creatinine 3.1 H (0.6-1.5) mg/dL Est Cr Clr Drug Dosing 22.45 mL/min Estimated GFR (MDRD) 19.7 ml/min Glucose 122 H (60-110) mg/dL POC Glucose (60-110) mg/dL Calcium 6.5 L (8.8-10.8) mg/dL Phosphorus 3.7 (2.4-4.7) mg/dL Magnesium 1.4 L (1.5-2.3) mEq/L Troponin I 0.12 (0.0-0.29) NG/ML 07/21/16 Range/Units 06:33 WBC (4.0-11.0) K/uL RBC (4.50-5.90) M/uL Hgb (13.0-17.0) g/dL Hct (38.0-50.0) % MCV (80.0-98.0) fL MCH (27.0-32.0) pg MCHC (31.0-37.0) g/dL RDW Std Deviation (28.0-62.0) fl RDW Coeff of Beck[place] (11.0-15.0) % Plt Count (150-400) K/uL MPV (7.40-12.00) fL Neut % (Auto) (48.0-80.0) % Lymph % (Auto) (16.0-40.0) % [place] % (Auto) (0.0-15.0) % Eos % (Auto) (0.0-7.0) % Baso % (Auto) (0.0-1.5) % Neut # (Auto) (1.4-5.7) K/uL Lymph # (Auto) (0.6-2.4) K/uL [place] # (Auto) (0.0-0.8) K/uL Eos # (Auto) (0.0-0.7) K/uL Baso # (Auto) (0.0-0.1) K/uL Nucleated RBC % /100WBC Nucleated RBCs # K/uL Sodium (136-146) mmol/L Potassium (3.5-5.1) mmol/L Chloride (98-110) mmol/L Carbon Dioxide (21-31) mmol/L BUN (6.0-23.0) mg/dL Creatinine (0.6-1.5) mg/dL Est Cr Clr Drug Dosing mL/min Estimated GFR (MDRD) ml/min Glucose (60-110) mg/dL POC Glucose 122 H (60-110) mg/dL Calcium (8.8-10.8) mg/dL Phosphorus (2.4-4.7) mg/dL Magnesium (1.5-2.3) mEq/L Troponin I (0.0-0.29) NG/ML Med Orders - Current: Current Medications Acetaminophen (Tylenol) 650 mg PO Q4H PRN PRN Reason: Pain Last Admin: 07/21/16 03:40 Dose: 650 mg Ascorbic Acid (Vitamin C) 500 mg PO DAILY [facility] Last Admin: 07/21/16 08:05 Dose: 500 mg Aspirin (Halfprin) 81 mg PO DAILY [facility] Last Admin: 07/21/16 08:05 Dose: 81 mg Calcium Gluconate (Calcium Gluconate) 1 gm IV NOW ONE Stop: 07/21/16 09:02 Clopidogrel Bisulfate (Plavix) 75 mg PO DAILY [facility] Last Admin: 07/21/16 08:05 Dose: 75 mg Levofloxacin/Dextrose 500 mg/ (Premix) 100 mls @ 100 mls/hr IV Q48H [facility] Piperacillin Sod/Tazobactam (Sod 2.25 gm/ Sodium Chloride) 50 mls @ 100 mls/hr IV Q8H [facility] Last Admin: 07/21/16 02:13 Dose: 100 mls/hr Vancomycin HCl 1,000 mg/Vancomycin HCl 250 mg/ Sodium Chloride 250 mls @ 167 mls/hr IV Q24H [facility] Last Admin: 07/20/16 20:08 Dose: 167 mls/hr Magnesium Sulfate 2 gm/ Premix 50 mls @ 50 mls/hr IV ONETIME ONE Stop: 07/21/16 09:59 Insulin Aspart (Novolog) 0 unit SUBCUT ACBED [facility] PRN Reason: Protocol Last Admin: 07/21/16 06:33 Dose: Not Given Nitroglycerin (Nitrostat) 0.4 mg SL ASDIRECTED PRN PRN Reason: Chest Pain Pantoprazole Sodium (Protonix) 40 mg PO DAILY [facility] Last Admin: 07/21/16 08:05 Dose: 40 mg Nephrocaps (Biotin/Fa/Vit C/Vit B Complex) 1 each PO DAILY [facility] Last Admin: 07/21/16 08:06 Dose: Not Given Amino Acids/Protein Hydrolys (Prosource No Carb Liquid Pk) 0 each PO TID [facility] Last Admin: 07/21/16 06:32 Dose: 30 each Sodium Chloride (Saline Flush) 10 ml FLUSH ASDIRECTED PRN PRN Reason: Keep Vein Open Sodium Chloride (Saline Flush) 2.5 ml FLUSH ASDIRECTED PRN PRN Reason: Keep Vein Open Vancomycin HCl (Pharmacy To Dose - Vancomycin) 1 dose .XX ASDIRECTED [facility] Wound Care/Dressing Products (Duoderm Cgf) 1 each TOP ASDIRECTED PRN PRN Reason: sacral ulcer Last Admin: 07/20/16 18:59 Dose: 1 each Discontinued Medications Aspirin (Aspirin) 324 mg PO ONETIME ONE Stop: 07/20/16 14:13 Last Admin: 07/20/16 14:46 Dose: Not Given Famotidine (Pepcid) 20 mg IVPUSH ONETIME ONE Stop: 07/20/16 14:13 Last Admin: 07/20/16 14:31 Dose: 20 mg Sodium Chloride (Normal Saline) 1,000 mls @ 999 mls/hr IV .Bolus ONE Stop: 07/20/16 16:11 Last Admin: 07/20/16 15:12 Dose: 999 mls/hr Levofloxacin/Dextrose 750 mg/ (Premix) 150 mls @ 100 mls/hr IV ONETIME ONE Stop: 07/20/16 16:58 Last Admin: 07/20/16 16:16 Dose: 100 mls/hr Magnesium Sulfate 2 gm/ Premix 50 mls @ 50 mls/hr IV ONETIME ONE Stop: 07/20/16 19:08 Last Admin: 07/20/16 18:35 Dose: 50 mls/hr Ketorolac Tromethamine (Toradol) 30 mg IVPUSH ONETIME ONE Stop: 07/20/16 14:13 Last Admin: 07/20/16 14:30 Dose: 30 mg Morphine Sulfate (Morphine) 2 mg IV ONETIME ONE Stop: 07/20/16 15:22 Last Admin: 07/20/16 15:27 Dose: 2 mg Nitroglycerin (Nitrostat) 0.4 mg SL Q5M ALMA Stop: 07/20/16 14:56 Last Admin: 07/20/16 18:39 Dose: Not Given - Exam General: Reports: alert, oriented (intermittent confusion, much improved since yesterday afternoon.), cooperative HEENT: Reports: Pupils equal, Pupils reactive, EOMI, Mucous membr. moist/pink Lungs: Reports: Clear to auscultation, Normal respiratory effort Cardiovascular: Reports: Regular Rate, Regular Rhythm, No Murmurs Abdomen: Reports: bowel sounds present, soft, no tenderness, no distension Extremities: Reports: edema (+2-3 LLE and +1-2 RLE.) Skin: Reports: warm, dry. Denies: intact Wound/Incisions: Denies: dressing dry and intact (to sacral healing ulcer. Deep tissue injuries noted to bilateral heels. Abrasions and some open blisters notedto toes and L anterior ankle. ), erythema Neurological: Reports: no new focal deficit, normal speech Psy/Mental Status: Reports: alert, normal affect, normal mood *Q Meaningful Use (DIS) - VTE *Q VTE Criteria *Q: - Stroke *Q Stroke Criteria *Q: - AMI *Q AMI Criteria *Q:
[2016-07-21] MEDS ORDERED: Calcium Gluconate 1 GM in Sodium Chloride 0.9% 100 ML IV SCH (11:00)
--- NOTE | 2016-07-21 11:14 | PCM.PN ---
- General Info Date of Service: 07/21/16 Subjective Update: Patient felt well, no further shoulder pain, trop neg x 3, ECG remained unchanged Functional Status: Reports: pain controlled - Review of Systems General: Reports: No Symptoms HEENT: Reports: no symptoms Pulmonary: Reports: no symptoms Cardiovascular: Reports: No Symptoms Gastrointestinal: Reports: No symptoms Genitourinary: Reports: no symptoms Musculoskeletal: Reports: no symptoms Skin: Reports: no symptoms Neurological: Reports: No Symptoms Psychiatric: Reports: no symptoms - Patient Data Vitals - most recent: Last Vital Signs Temp 36.9 C 07/21/16 08:00 Pulse 55 L 07/21/16 08:00 Resp 18 07/21/16 08:00 BP 117/55 L 07/21/16 08:00 Pulse Ox 98 07/21/16 08:00 Weight - most recent: 81.2 kg I&O - last 24 hours: Intake & Output 07/20/16 07/21/16 07/21/16 22:59 06:59 14:59 Intake Total 500 1007 200 Balance 500 1007 200 Lab Results last 24 hrs: Laboratory Results - last 24 hr 07/20/16 07/20/16 07/21/16 Range/Units 20:10 21:57 03:59 WBC 6.57 (4.0-11.0) K/uL RBC 3.05 L (4.50-5.90) M/uL Hgb 9.4 L (13.0-17.0) g/dL Hct 29.8 L (38.0-50.0) % MCV 97.7 (80.0-98.0) fL MCH 30.8 (27.0-32.0) pg MCHC 31.5 (31.0-37.0) g/dL RDW Std Deviation 59.6 (28.0-62.0) fl RDW Coeff of Becka 17 H (11.0-15.0) % Plt Count 120 L (150-400) K/uL MPV 10.40 (7.40-12.00) fL Neut % (Auto) 73.8 (48.0-80.0) % Lymph % (Auto) 8.4 L (16.0-40.0) % [place] % (Auto) 11.9 (0.0-15.0) % Eos % (Auto) 5.0 (0.0-7.0) % Baso % (Auto) 0.9 (0.0-1.5) % Neut # (Auto) 4.9 (1.4-5.7) K/uL Lymph # (Auto) 0.6 (0.6-2.4) K/uL [place] # (Auto) 0.8 (0.0-0.8) K/uL Eos # (Auto) 0.3 (0.0-0.7) K/uL Baso # (Auto) 0.1 (0.0-0.1) K/uL Nucleated RBC % 0.0 /100WBC Nucleated RBCs # 0 K/uL Sodium (136-146) mmol/L Potassium (3.5-5.1) mmol/L Chloride (98-110) mmol/L Carbon Dioxide (21-31) mmol/L BUN (6.0-23.0) mg/dL Creatinine (0.6-1.5) mg/dL Est Cr Clr Drug Dosing mL/min Estimated GFR (MDRD) ml/min Glucose (60-110) mg/dL POC Glucose 187 H (60-110) mg/dL Calcium (8.8-10.8) mg/dL Phosphorus (2.4-4.7) mg/dL Magnesium (1.5-2.3) mEq/L Troponin I 0.10 (0.0-0.29) NG/ML 07/21/16 07/21/16 07/21/16 Range/Units 03:59 03:59 03:59 WBC (4.0-11.0) K/uL RBC (4.50-5.90) M/uL Hgb (13.0-17.0) g/dL Hct (38.0-50.0) % MCV (80.0-98.0) fL MCH (27.0-32.0) pg MCHC (31.0-37.0) g/dL RDW Std Deviation (28.0-62.0) fl RDW Coeff of Becka (11.0-15.0) % Plt Count (150-400) K/uL MPV (7.40-12.00) fL Neut % (Auto) (48.0-80.0) % Lymph % (Auto) (16.0-40.0) % [place] % (Auto) (0.0-15.0) % Eos % (Auto) (0.0-7.0) % Baso % (Auto) (0.0-1.5) % Neut # (Auto) (1.4-5.7) K/uL Lymph # (Auto) (0.6-2.4) K/uL [place] # (Auto) (0.0-0.8) K/uL Eos # (Auto) (0.0-0.7) K/uL Baso # (Auto) (0.0-0.1) K/uL Nucleated RBC % /100WBC Nucleated RBCs # K/uL Sodium 135 L (136-146) mmol/L Potassium 4.0 (3.5-5.1) mmol/L Chloride 99 (98-110) mmol/L Carbon Dioxide 25 (21-31) mmol/L BUN 29 H (6.0-23.0) mg/dL Creatinine 3.1 H (0.6-1.5) mg/dL Est Cr Clr Drug Dosing 22.45 mL/min Estimated GFR (MDRD) 19.7 ml/min Glucose 122 H (60-110) mg/dL POC Glucose (60-110) mg/dL Calcium 6.5 L (8.8-10.8) mg/dL Phosphorus 3.7 (2.4-4.7) mg/dL Magnesium 1.4 L (1.5-2.3) mEq/L Troponin I 0.12 (0.0-0.29) NG/ML 07/21/16 Range/Units 06:33 WBC (4.0-11.0) K/uL RBC (4.50-5.90) M/uL Hgb (13.0-17.0) g/dL Hct (38.0-50.0) % MCV (80.0-98.0) fL MCH (27.0-32.0) pg MCHC (31.0-37.0) g/dL RDW Std Deviation (28.0-62.0) fl RDW Coeff of Becka (11.0-15.0) % Plt Count (150-400) K/uL MPV (7.40-12.00) fL Neut % (Auto) (48.0-80.0) % Lymph % (Auto) (16.0-40.0) % [place] % (Auto) (0.0-15.0) % Eos % (Auto) (0.0-7.0) % Baso % (Auto) (0.0-1.5) % Neut # (Auto) (1.4-5.7) K/uL Lymph # (Auto) (0.6-2.4) K/uL [place] # (Auto) (0.0-0.8) K/uL Eos # (Auto) (0.0-0.7) K/uL Baso # (Auto) (0.0-0.1) K/uL Nucleated RBC % /100WBC Nucleated RBCs # K/uL Sodium (136-146) mmol/L Potassium (3.5-5.1) mmol/L Chloride (98-110) mmol/L Carbon Dioxide (21-31) mmol/L BUN (6.0-23.0) mg/dL Creatinine (0.6-1.5) mg/dL Est Cr Clr Drug Dosing mL/min Estimated GFR (MDRD) ml/min Glucose (60-110) mg/dL POC Glucose 122 H (60-110) mg/dL Calcium (8.8-10.8) mg/dL Phosphorus (2.4-4.7) mg/dL Magnesium (1.5-2.3) mEq/L Troponin I (0.0-0.29) NG/ML Med Orders - Current: Current Medications Acetaminophen (Tylenol) 650 mg PO Q4H PRN PRN Reason: Pain Last Admin: 07/21/16 03:40 Dose: 650 mg Ascorbic Acid (Vitamin C) 500 mg PO DAILY [facility] Last Admin: 07/21/16 08:05 Dose: 500 mg Aspirin (Halfprin) 81 mg PO DAILY [facility] Last Admin: 07/21/16 08:05 Dose: 81 mg Clopidogrel Bisulfate (Plavix) 75 mg PO DAILY [facility] Last Admin: 07/21/16 08:05 Dose: 75 mg Levofloxacin/Dextrose 500 mg/ (Premix) 100 mls @ 100 mls/hr IV Q48H [facility] Piperacillin Sod/Tazobactam (Sod 2.25 gm/ Sodium Chloride) 50 mls @ 100 mls/hr IV Q8H [facility] Last Admin: 07/21/16 10:56 Dose: 100 mls/hr Vancomycin HCl 1,000 mg/Vancomycin HCl 250 mg/ Sodium Chloride 250 mls @ 167 mls/hr IV Q24H [facility] Last Admin: 07/20/16 20:08 Dose: 167 mls/hr Calcium Gluconate 1 gm/ Sodium (Chloride) 110 mls @ 220 mls/hr IV DAILY@1100 [facility] Stop: 07/21/16 11:29 Last Admin: 07/21/16 10:27 Dose: 220 mls/hr Insulin Aspart (Novolog) 0 unit SUBCUT ACBED [facility] PRN Reason: Protocol Last Admin: 07/21/16 06:33 Dose: Not Given Nitroglycerin (Nitrostat) 0.4 mg SL ASDIRECTED PRN PRN Reason: Chest Pain Pantoprazole Sodium (Protonix) 40 mg PO DAILY [facility] Last Admin: 07/21/16 08:05 Dose: 40 mg Nephrocaps (Biotin/Fa/Vit C/Vit B Complex) 1 each PO DAILY [facility] Last Admin: 07/21/16 08:06 Dose: Not Given Amino Acids/Protein Hydrolys (Prosource No Carb Liquid Pk) 0 each PO TID [facility] Last Admin: 07/21/16 06:32 Dose: 30 each Sodium Chloride (Saline Flush) 10 ml FLUSH ASDIRECTED PRN PRN Reason: Keep Vein Open Sodium Chloride (Saline Flush) 2.5 ml FLUSH ASDIRECTED PRN PRN Reason: Keep Vein Open Vancomycin HCl (Pharmacy To Dose - Vancomycin) 1 dose .XX ASDIRECTED [facility] Wound Care/Dressing Products (Duoderm Cgf) 1 each TOP ASDIRECTED PRN PRN Reason: sacral ulcer Last Admin: 07/20/16 18:59 Dose: 1 each Discontinued Medications Aspirin (Aspirin) 324 mg PO ONETIME ONE Stop: 07/20/16 14:13 Last Admin: 07/20/16 14:46 Dose: Not Given Famotidine (Pepcid) 20 mg IVPUSH ONETIME ONE Stop: 07/20/16 14:13 Last Admin: 07/20/16 14:31 Dose: 20 mg Sodium Chloride (Normal Saline) 1,000 mls @ 999 mls/hr IV .Bolus ONE Stop: 07/20/16 16:11 Last Admin: 07/20/16 15:12 Dose: 999 mls/hr Levofloxacin/Dextrose 750 mg/ (Premix) 150 mls @ 100 mls/hr IV ONETIME ONE Stop: 07/20/16 16:58 Last Admin: 07/20/16 16:16 Dose: 100 mls/hr Magnesium Sulfate 2 gm/ Premix 50 mls @ 50 mls/hr IV ONETIME ONE Stop: 07/20/16 19:08 Last Admin: 07/20/16 18:35 Dose: 50 mls/hr Magnesium Sulfate 2 gm/ Premix 50 mls @ 50 mls/hr IV ONETIME ONE Stop: 07/21/16 09:59 Last Admin: 07/21/16 09:24 Dose: 50 mls/hr Ketorolac Tromethamine (Toradol) 30 mg IVPUSH ONETIME ONE Stop: 07/20/16 14:13 Last Admin: 07/20/16 14:30 Dose: 30 mg Morphine Sulfate (Morphine) 2 mg IV ONETIME ONE Stop: 07/20/16 15:22 Last Admin: 07/20/16 15:27 Dose: 2 mg Nitroglycerin (Nitrostat) 0.4 mg SL Q5M [facility] Stop: 07/20/16 14:56 Last Admin: 07/20/16 18:39 Dose: Not Given - Exam General: alert, oriented HEENT: Pupils equal, Pupils reactive Neck: supple Lungs: Clear to auscultation Cardiovascular: Regular Rate, Regular Rhythm, Other (dialysis catheter on the right chest wall. ) Abdomen: bowel sounds present (Male) Exam: No hernia, Normal inspection, Normal prostate Back Exam: normal inspection, full range of motion Extremities: other (2+ edema) EKG INTERPRETATION Rhythm: NSR [place]: normal - Problem List Review Problem List Initiated/Reviewed/Updated: Yes - My Orders Last 24 Hours: My Active Orders 07/21/16 07:00 EKG 12 Lead [EKG Documentation Completion] [RC] ROUTINE - Plan Plan:: 76M CAD s/p CABG LOJA to LAD SVG to OM1 OM2 SVG to PDA< with recent NSTEMI respiratory failure with LAD PCI< RCA PCI, PDA PTCA ischemic cardiomyopathy EF 25% with left shoulder pain in concern of ACS 1. CAD s/p CABG LAD PCI RCA PCI PDA PTCA so far trop has been negative, ECG remain unchanged. His medication is not including betablocker, he is only on ASA /plavix, he may have had any adverse effect to BB, in [place]. 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 Ischemic cardiomyopathy EF 25%: s/p LAD PCI, he will need to reassess EF in the next 3 month for ICD 3. HCAP: on vanco/zosyn/levaquin
[2016-07-22] MEDS ORDERED: Levofloxacin/Dextrose 5%-Water 500 MG in Premix Bag 1 BAG IV SCH (16:00)
== END 2016-07-21 12:30 ==
LOC: MW.ED 14:09 → MW.MS 15:58
PROVIDERS: ADMIT Family Medicine; ATTEND Family Medicine
DX: R07.9 Chest pain, unspecified (principal); J18.9 Pneumonia, unspecified organism; I25.810 Atherosclerosis of coronary artery bypass graft(s) without angina pectoris; I12.0 Hypertensive chronic kidney disease with stage 5 chronic kidney disease or end stage renal disease; N18.6 End stage renal disease; Z95.5 Presence of coronary angioplasty implant and graft; I25.2 Old myocardial infarction; Z86.718 Personal history of other venous thrombosis and embolism; E11.21 Type 2 diabetes mellitus with diabetic nephropathy; E11.40 Type 2 diabetes mellitus with diabetic neuropathy, unspecified; D50.9 Iron deficiency anemia, unspecified; Z99.2 Dependence on renal dialysis; I73.9 Peripheral vascular disease, unspecified; L97.409 Non-pressure chronic ulcer of unspecified heel and midfoot with unspecified severity; L98.499 Non-pressure chronic ulcer of skin of other sites with unspecified severity; I25.5 Ischemic cardiomyopathy; Z79.82 Long term (current) use of aspirin; Z79.899 Other long term (current) drug therapy; Z88.8 Allergy status to other drugs, medicaments and biological substances; Z91.09 Other allergy status, other than to drugs and biological substances
CPT/HCPCS: 36415; 71020; 80048; 80053; 82150; 82962; 83690; 83735; 83880; 84100; 84484; 85025; 85610; 93005; 96361; 96365; 96367; 96374; 96375; 96376; 99285; A9270; G0378; J0610; J1815; J1885; J1956; J2270; J2543; J3370; J3475; J7030; J7040; J7050

== ENCOUNTER 2016-07-25 14:09 | Emergency (ER) | payer MEDICARE ==
[2016-07-25] MEDS ORDERED: Ketorolac 30 MG/ML SDV IVPUSH ONE (14:11)
[2016-07-25] MEDS ORDERED: Famotidine 20 MG/2 ML SDV IVPUSH ONE (14:11)
[2016-07-25] MEDS ORDERED: Sodium Chloride 0.9% 2.5 ML Syringe FLUSH PRN (14:11)
[2016-07-25] MEDS ORDERED: Alum Hydrox/Mag Hydrox/Simeth 15 ML, Metoclopramide 5 MG, Lidocaine 2% 5 ML PO ONE ×3 (14:11)
[2016-07-25] MEDS ORDERED: Aspirin 81 MG Tab.Chew PO ONE (14:11)
[2016-07-25] MEDS ORDERED: Sodium Chloride 0.9% 10 ML Syringe FLUSH PRN (14:11)
[2016-07-25 15:01] LABS: CHLORIDE,CL 95 mmol/L (98-110); SODIUM,NA 132 mmol/L (136-146)
--- NOTE | 2016-07-25 15:56 | EDM.PDOC ---
ED HPI GENERAL MEDICAL PROBLEM - General Chief Complaint: General Stated Complaint: LT SHOULDER HURTS Time Seen by Provider: 07/25/16 14:10 Source of Information: Reports: Patient, Family History Limitations: Reports: No limitations - History of Present Illness INITIAL COMMENTS - FREE TEXT/NARRATIVE: History of present illness: [A 76-year-old male brought in secondary to complaints left-sided shoulder pain. Patient has a protracted cardiac history and left shoulder pain has historically been an anginal equivalent for this gentleman. ] Review of systems: As per history of present illness and below otherwise all systems reviewed and negative. Past medical history: As per history of present illness and as reviewed below otherwise noncontributory. Surgical history: As per history of present illness and as reviewed below otherwise noncontributory. Social history: No reported history of drug or alcohol abuse. Family history: As per history of present illness and as reviewed below otherwise noncontributory. Physical exam: HEENT: Atraumatic, normocephalic, pupils reactive, negative for conjunctival pallor or scleral icterus, mucous membranes moist, throat clear, neck supple, nontender, trachea midline. Lungs: Clear to auscultation, breath sounds equal bilaterally, chest nontender. Heart: S1S2, regular, negative for clicks, rubs, or JVD. Abdomen: Soft, nondistended, nontender. Negative for masses or hepatosplenomegaly. Negative for costovertebral tenderness. Pelvis: Stable nontender. Genitourinary: Deferred. Rectal: Deferred. Extremities: Atraumatic, negative for cords or calf pain. Neurovascular unremarkable. Neuro: Awake, alert, oriented. Cranial nerves II through XII unremarkable. Cerebellum unremarkable. Motor and sensory unremarkable throughout. Exam nonfocal. Patient is sitting quietly in a gurney at his baseline. After cardiac workup patient is resting quietly in bed without any evidence of NH. Discussed with the presence of atypical chest pain as well as his anginal appropriate and his shoulder. There is a dialogue about the nitroglycerin and her ability and/or inability to give it to him while he is in dialysis and or at the [facility]. The patient and would like him to return to [facility] it is supposed to stay on observation and they acknowledge that they would like to discuss playbacks with Dr. King for they would be able to have nitroglycerin to resolve any angina outside of waiting for staff to give it or send him back to the ER. In light of current negative lab findings and based on patient's desire and 's desire patient will be discharged back to [facility]. Diagnostics: [EKG, chest x-ray, CBC, CMP, troponin, PT/INR] Therapeutics: [IV, Zofran, Toradol] Impression: [Atypical shoulder pain] Plan: [Proceed with planned appointments with Dr. King as scheduled this Monday] Definitive disposition and diagnosis as appropriate pending reevaluation and review of above. Left Shoulder Pain Score (Numeric/FACES): 9 - Related Data Allergies Allergy/AdvReac Type Severity Reaction Status Date / Time iodine Allergy Other Verified 07/20/16 16:26 enteric coat medications Allergy Other Uncoded 07/20/16 16:26 glue Allergy Other Uncoded 07/20/16 16:26 Home Meds: Home Meds Acetaminophen [Acetaminophen ER] 650 mg PO Q4H PRN 07/20/16 [History] Acetaminophen [Tylenol Extra Strength] 500 mg PO QID PRN 07/20/16 [History] Amino Acids/Protein Hydrolys [Prosource No Carb Liquid Pkt] 30 ml PO TID [History] Ascorbate Calcium [Vitamin C] 500 mg PO DAILY 07/20/16 [History] Aspirin [Halfprin] 81 mg PO DAILY 07/20/16 [History] Biotin/FA/Vit C/Vit B Complex [Nephrocaps] 1 cap PO DAILY 07/20/16 [History] Clopidogrel [Plavix] 75 mg PO BEDTIME 07/20/16 [History] Loperamide [Imodium AD] 2 mg PO ASDIRECTED PRN 07/20/16 [History] Nebivolol [Bystolic] 5 mg PO BEDTIME 07/20/16 [History] Nitroglycerin 0.4 mg SL ASDIRECTED PRN 07/20/16 [History] Pantoprazole Sodium [Protonix] 40 mg PO DAILY 07/20/16 [History] Petrolatum,White [Vaseline] 1 dose TP BEDTIME PRN 07/20/16 [History] Insulin Aspart [NovoLOG] See Protocol SUBCUT TIDAC #2 pen 07/21/16 [Rx] Levofloxacin [Levaquin] 500 mg PO Q48H #3 tablet 07/21/16 [Rx] Past Medical History Cardiovascular History: Reports: Arrhythmia, Blood clots/VTE/DVT, CAD, Cardiomyopathy, [place], PVD, Other (see below) Other Cardiovascular History: pericarditis Respiratory History: Reports: None Gastrointestinal History: Reports: None Genitourinary History: Reports: Acute renal failure, Chronic renal insuffiency, Dialysis, Diabetic nephropathy Psychiatric History: Reports: None Endocrine/Metabolic History: Reports: Diabetes, type II Hematologic History: Reports: Anemia, Iron deficiency Oncologic (Cancer) History: Reports: None Dermatologic History: Reports: Decubitus ulcer - Infectious Disease History Infectious Disease History: Reports: Influenza - Past Surgical History Head Surgeries/Procedures: Reports: None Cardiovascular Surgical History: Reports: Coronary artery bypass, Coronary artery stent, Vascular surgery GI Surgical History: Reports: None Musculoskeletal Surgical History: Reports: Other (see below) Other Musculoskeletal Surgeries/Procedures:: left fifth toe amputation Dermatological Surgical History: Reports: Skin graft Social & Family History - Family History Family Medical History: Noncontributory HEENT: Reports: Impaired vision - Tobacco Use Smoking Status *Q: Never Smoker Second Hand Smoke Exposure: No - Caffeine Use Caffeine Use: Reports: Coffee - Recreational Drug Use Recreational Drug Use: No - Living Situation & Occupation Living situation: Reports: Occupation: retired ED ROS GENERAL - Review of Systems Review Of Systems: See Below (The history of present illness) ED EXAM, GENERAL - Physical Exam Exam: See Below (The history of present illness) Course - Vital Signs Last Recorded V/S: Last Vital Signs Temp 36.9 C 07/25/16 14:21 Pulse 58 L 07/25/16 14:21 Resp 18 07/25/16 14:21 BP 128/52 L 07/25/16 14:21 Pulse Ox 98 07/25/16 14:21 - Orders/Labs/Meds Orders: Active Orders 24 hr Category Date Time Status Cardiac Monitoring [RC] . DIRECTED Care 07/25/16 14:11 Ordered EKG Documentation Completion [RC] STAT Care 07/25/16 14:12 Ordered Chest 1V Frontal [CR] Stat Exams 07/25/16 14:11 Taken UA W/MICROSCOPIC [URIN] Stat Lab 07/25/16 14:11 Uncollected Sodium Chloride 0.9% [Saline Flush] Med 07/25/16 14:11 Ordered 10 ml FLUSH ASDIRECTED PRN Sodium Chloride 0.9% [Saline Flush] Med 07/25/16 14:11 Ordered 2.5 ml FLUSH ASDIRECTED PRN Saline Lock Insert [OM.PC] Stat Oth 07/25/16 14:11 Ordered Medication Orders Sodium Chloride (Saline Flush) 10 ml FLUSH ASDIRECTED PRN PRN Reason: Keep Vein Open Last Admin: 07/25/16 14:36 Dose: 10 ml Sodium Chloride (Saline Flush) 2.5 ml FLUSH ASDIRECTED PRN PRN Reason: Keep Vein Open Last Admin: 07/25/16 14:36 Dose: 2.5 ml Labs: Laboratory Tests 07/25/16 07/25/16 07/25/16 Range/Units 14:27 14:27 14:27 WBC 9.61 (4.0-11.0) K/uL RBC 3.80 L (4.50-5.90) M/uL Hgb 11.7 L (13.0-17.0) g/dL Hct 36.6 L (38.0-50.0) % MCV 96.3 (80.0-98.0) fL MCH 30.8 (27.0-32.0) pg MCHC 32.0 (31.0-37.0) g/dL RDW Std Deviation 56.8 (28.0-62.0) fl RDW Coeff of Becka 17 H (11.0-15.0) % Plt Count 235 (150-400) K/uL MPV 10.70 (7.40-12.00) fL Neut % (Auto) 77.6 (48.0-80.0) % Lymph % (Auto) 7.3 L (16.0-40.0) % [place] % (Auto) 12.6 (0.0-15.0) % Eos % (Auto) 2.0 (0.0-7.0) % Baso % (Auto) 0.5 (0.0-1.5) % Neut # (Auto) 7.5 H (1.4-5.7) K/uL Lymph # (Auto) 0.7 (0.6-2.4) K/uL [place] # (Auto) 1.2 H (0.0-0.8) K/uL Eos # (Auto) 0.2 (0.0-0.7) K/uL Baso # (Auto) 0.1 (0.0-0.1) K/uL Nucleated RBC % 0.0 /100WBC Nucleated RBCs # 0 K/uL INR 1.11 (0.86-1.11) Sodium 132 L (136-146) mmol/L Potassium 3.9 (3.5-5.1) mmol/L Chloride 95 L (98-110) mmol/L Carbon Dioxide 26 (21-31) mmol/L BUN 21 (6.0-23.0) mg/dL Creatinine 2.4 H (0.6-1.5) mg/dL Est Cr Clr Drug Dosing TNP Estimated GFR (MDRD) 26.5 ml/min Glucose 195 H (60-110) mg/dL Calcium 7.8 L (8.8-10.8) mg/dL Total Bilirubin 0.7 (0.1-1.5) mg/dL AST 24 (5-40) IU/L ALT 13 (8-54) IU/L Alkaline Phosphatase 90 (40-150) Troponin I (0.0-0.29) NG/ML Total Protein 7.0 (6.0-8.0) g/dL Albumin 3.4 (3.4-4.8) g/dL Globulin 3.6 H (2.0-3.5) g/dL Albumin/Globulin Ratio 0.9 L (1.3-2.8) Amylase 36 (10-90) U/L Lipase 73 (7-80) U/L 07/25/16 Range/Units 14:27 WBC (4.0-11.0) K/uL RBC (4.50-5.90) M/uL Hgb (13.0-17.0) g/dL Hct (38.0-50.0) % MCV (80.0-98.0) fL MCH (27.0-32.0) pg MCHC (31.0-37.0) g/dL RDW Std Deviation (28.0-62.0) fl RDW Coeff of Becka (11.0-15.0) % Plt Count (150-400) K/uL MPV (7.40-12.00) fL Neut % (Auto) (48.0-80.0) % Lymph % (Auto) (16.0-40.0) % [place] % (Auto) (0.0-15.0) % Eos % (Auto) (0.0-7.0) % Baso % (Auto) (0.0-1.5) % Neut # (Auto) (1.4-5.7) K/uL Lymph # (Auto) (0.6-2.4) K/uL [place] # (Auto) (0.0-0.8) K/uL Eos # (Auto) (0.0-0.7) K/uL Baso # (Auto) (0.0-0.1) K/uL Nucleated RBC % /100WBC Nucleated RBCs # K/uL INR (0.86-1.11) Sodium (136-146) mmol/L Potassium (3.5-5.1) mmol/L Chloride (98-110) mmol/L Carbon Dioxide (21-31) mmol/L BUN (6.0-23.0) mg/dL Creatinine (0.6-1.5) mg/dL Est Cr Clr Drug Dosing Estimated GFR (MDRD) ml/min Glucose (60-110) mg/dL Calcium (8.8-10.8) mg/dL Total Bilirubin (0.1-1.5) mg/dL AST (5-40) IU/L ALT (8-54) IU/L Alkaline Phosphatase (40-150) Troponin I < 0.10 (0.0-0.29) NG/ML Total Protein (6.0-8.0) g/dL Albumin (3.4-4.8) g/dL Globulin (2.0-3.5) g/dL Albumin/Globulin Ratio (1.3-2.8) Amylase (10-90) U/L Lipase (7-80) U/L Meds: Medications Generic Name Dose Route Start Last Admin Trade Name Freq PRN Reason Stop Dose Admin Sodium Chloride 10 ml 07/25/16 14:11 07/25/16 14:36 Saline Flush FLUSH 10 ml ASDIRECTED PRN Administration Keep Vein Open Sodium Chloride 2.5 ml 07/25/16 14:11 07/25/16 14:36 Saline Flush FLUSH 2.5 ml ASDIRECTED PRN Administration Keep Vein Open Discontinued Medications Generic Name Dose Route Start Last Admin Trade Name Barbara PRN Reason Stop Dose Admin Aspirin 324 mg 07/25/16 14:11 07/25/16 14:35 Aspirin PO 07/25/16 14:12 324 mg ONETIME ONE Administration Al Hydroxide/Mg Hydroxide 15 0 ml 07/25/16 14:11 07/25/16 14:35 ml/ Metoclopramide HCl 5 mg/ PO 07/25/16 14:12 1 each Lidocaine HCl 5 ml ONETIME ONE Administration Famotidine 20 mg 07/25/16 14:11 07/25/16 14:35 Pepcid IVPUSH 07/25/16 14:12 20 mg ONETIME ONE Administration Ketorolac Tromethamine 30 mg 07/25/16 14:11 07/25/16 14:35 Toradol IVPUSH 07/25/16 14:12 30 mg ONETIME ONE Administration Departure - Departure Time of Disposition: 16:03 Disposition: Home, Self-Care 01 Condition: good Clinical Impression: Chest pain Qualifiers: Chest pain type: unspecified Qualified Code(s): R07.9 - Chest pain, unspecified Forms: ED Department Discharge Additional Instructions: The following information is given to patients seen in the emergency department who are being discharged to home. This information is to outline your options for follow-up care. We provide all patients seen in our emergency department with a follow-up referral. The need for follow-up, as well as the timing and circumstances, are variable depending upon the specifics of your emergency department visit. If you don't have a primary care physician on staff, we will provide you with a referral. We always advise you to contact your personal physician following an emergency department visit to inform them of the circumstance of the visit and for follow-up with them and/or the need for any referrals to a consulting specialist. The emergency department will also refer you to a specialist when appropriate. This referral assures that you have the opportunity for follow-up care with a specialist. All of these measure are taken in an effort to provide you with optimal care, which includes your follow-up. Under all circumstances we always encourage you to contact your private physician who remains a resource for coordinating your care. When calling for follow-up care, please make the office aware that this follow-up is from your recent emergency room visit. If for any reason you are refused follow-up, please contact the [facility] Emergency Department at and asked to speak to the emergency department charge nurse. Followup with Dr. King as discussed Return to ED as needed as discussed - My Orders Last 24 Hours: My Active Orders 07/25/16 14:11 Cardiac Monitoring [RC] . DIRECTED Chest 1V Frontal [CR] Stat UA W/MICROSCOPIC [URIN] Stat Sodium Chloride 0.9% [Saline Flush] 10 ml FLUSH ASDIRECTED PRN Sodium Chloride 0.9% [Saline Flush] 2.5 ml FLUSH ASDIRECTED PRN Saline Lock Insert [OM.PC] Stat 07/25/16 14:12 EKG Documentation Completion [RC] STAT - Assessment/Plan Last 24 Hours: My Active Orders 07/25/16 14:11 Cardiac Monitoring [RC] . DIRECTED Chest 1V Frontal [CR] Stat UA W/MICROSCOPIC [URIN] Stat Sodium Chloride 0.9% [Saline Flush] 10 ml FLUSH ASDIRECTED PRN Sodium Chloride 0.9% [Saline Flush] 2.5 ml FLUSH ASDIRECTED PRN Saline Lock Insert [OM.PC] Stat 07/25/16 14:12 EKG Documentation Completion [RC] STAT
--- NOTE | 2016-07-25 16:07 | CR ---
EXAM DATE: 07/25/16 PATIENT'S AGE: 76 Patient: TERRENCE BRAY Facility: [place], [place] Site . Site : 1940 Study: XRay Chest [id number] 3:05:13 PM Ordering Physician: Doctor Art Final Report: Indication: Chest pain Technique: Chest 1 view Comparison: July 20, 2016. Findings/Impression: Stable cardiomediastinal silhouette. Postoperative changes of a median sternotomy. Right-sided central venous catheter tip projects at the level of the cavoatrial junction. Stable blunting of both costophrenic angles on the basis of a small amount of pleural fluid or pleural thickening. No new focal consolidation. Minimal linear atelectasis or scarring at the left lung base. No pneumothorax. No acute osseous abnormality. Dictated by Vane Grajeda MD @ Jul 25 2016 3:37PM (Electronic Signature) Report Signed by Proxy and Original Signed Document filed in the Medical Record. [facility]
[2016-07-25 16:35] VITALS: BP 153/59
== END 2016-07-25 16:15 | disposition home or self-care (01) ==
LOC: MW.ED 14:09
DX: R07.9 Chest pain, unspecified (principal); M25.511 Pain in right shoulder; E11.22 Type 2 diabetes mellitus with diabetic chronic kidney disease; N18.9 Chronic kidney disease, unspecified; I49.9 Cardiac arrhythmia, unspecified; I42.9 Cardiomyopathy, unspecified; I25.2 Old myocardial infarction; D50.9 Iron deficiency anemia, unspecified; I25.10 Atherosclerotic heart disease of native coronary artery without angina pectoris; Z86.718 Personal history of other venous thrombosis and embolism; Z79.899 Other long term (current) drug therapy; Z95.5 Presence of coronary angioplasty implant and graft
CPT/HCPCS: 36415; 71010; 80053; 82150; 83690; 84484; 85025; 85610; 93005; 96374; 96375; 99284; A9270; J1885

== ENCOUNTER → 2016-07-29 | Outpatient (CLI) | payer MEDICARE | LOC: MW.CHIM 08:00 | PROVIDERS: ATTEND Internal Medicine | DX: R07.89 Other chest pain (principal); I50.9 Heart failure, unspecified; N18.9 Chronic kidney disease, unspecified; I25.10 Atherosclerotic heart disease of native coronary artery without angina pectoris | CPT/HCPCS: 99214 ==

== ENCOUNTER 2016-08-05 15:44 | Emergency (ER) | payer MEDICARE ==
[2016-08-05] MEDS ORDERED: Sodium Chloride 0.9% 10 ML Syringe FLUSH PRN (16:01)
[2016-08-05] MEDS ORDERED: Sodium Chloride 0.9% 2.5 ML Syringe FLUSH PRN (16:01)
--- NOTE | 2016-08-05 16:01 | EDM.PDOC ---
ED HPI GENERAL MEDICAL PROBLEM - General Chief Complaint: Chest Pain Stated Complaint: UNK Time Seen by Provider: 08/05/16 15:50 - History of Present Illness INITIAL COMMENTS - FREE TEXT/NARRATIVE: HISTORY AND PHYSICAL: History of present illness: The patient is a 76-year-old male who lives at [facility] and presents with a history of CABG, stable angina, angioplasty and stents mid July of this year, diabetes, ischemic cardiomyopathy with an ejection fraction of 25%, and stage renal disease on hemodialysis Monday and Monday, peripheral neuropathy, hypertension, left leg DVT; he presents to the ER with complaints of left shoulder pain which is his anginal equivalent which started after dialysis today. The patient has been seen here on July 20 with an observation admission as well as July 25, but that last visit he refused admission. Patient states that usually after his dialysis he will get the shoulder pain and he received a nitroglycerin and he feels better. According to patient and history that was given to us, he had his normal dialysis run and he did have left shoulder/upper chest discomfort and when he went back to [facility] he was not given nitroglycerin because his blood pressure was "too low". The patient currently denies any shortness of breath abdominal pain nausea vomiting and arrived here via EMS. In route he received aspirin but refused IV access and is currently refusing IV access here as well. The patient had an admission to [facility] mid July due to respiratory failure from decompensated CHF pneumonia and his ischemic cardiomyopathy and at that time he was angiogram and stented per Dr. Minaya. On our admission here July 20 to the , he ruled out per enzymes and EKGs and was discharged back to [facility]. While he was here he was seen by our auto inspection specialist, Dr. King, and that consult reported and reviewed by me. He was medically managed at that time. The patient does have a history of being a very poor historian and intermittent confusion. is at bedside currently and I have discussed the care plan with her Review of systems: As per history of present illness and below otherwise all systems reviewed and negative. Past medical history: As per history of present illness and as reviewed below otherwise noncontributory. Surgical history: As per history of present illness and as reviewed below otherwise noncontributory. Social history: No reported history of drug or alcohol abuse. Family history: As per history of present illness and as reviewed below otherwise noncontributory. Physical exam: General: Well-developed thin man who is nontoxic and speaking clearly and easily in ED. Vital signs have been noted by me. HEENT: Atraumatic, normocephalic, pupils reactive, negative for conjunctival pallor or scleral icterus, mucous membranes moist, throat clear, neck supple, nontender, trachea midline. Lungs: Clear to auscultation no work or breathing or sensory muscle use, breath sounds equal bilaterally, chest nontender. There is a dialysis catheter is seen at the right anterior chest wall without any surrounding erythema or swelling Heart: S1S2, regular rate and rhythm no overt murmurs are appreciated Abdomen: Soft, nondistended, nontender. Negative for masses or hepatosplenomegaly. Negative for costovertebral tenderness. Skin: Sallow color overall to skin but no overt rashes or lesions are appreciated Genitourinary: Deferred. Rectal: Deferred. Extremities: Atraumatic, negative for cords or calf pain. Neurovascular unremarkable. There is some bilateral foot/ankle edema bilaterally left greater than right but the left calf is not grossly swollen. There is a dressing in place on the left foot and heel consistent with a pressure sore that he has had in the past. states that the edema of his feet and ankles is actually improved from previously and I concur from my last exam of this patient in July. Neuro: Awake, alert, oriented. Motor and sensory unremarkable throughout. Exam nonfocal. Diagnostics: EKG chest x-ray CBC CMP troponin Therapeutics: IV O2 monitor small IV fluid bolus Toradol Initially the patient was refusing IV access and any labs as well as any medications and is asking to go back to [facility]. After multiple conversations with him and the arriving at bedside he is willing to allow us to obtain labs and place an IV so that we can give a small fluid bolus and try nitroglycerin and Toradol. I compared today's EKG to the 2 previous performed on July 20 and . There are no significant changes of note. Dr. Fair our auto inspection specialist was notified by [facility] and by the ER of this patient's arrival in the ED and will come by after his clinic. 1716: Dr Fair is here in the ER evaluating the patient. 1735: Dr. King feels that the patient has improved with the discomfort with Toradol alone and he would like to hold any nitroglycerin. He states that he will do a full consult but that he will speak with Dr. Pitts and Dr. Minaya about this case so that we can try to minimize further ER visits and develop a care plan. is at bedside and she and the patient are aware of all testing results and this plan. Patient does not want to stay in the ER anymore and would like to go back to [facility] and does not want nitroglycerin as he feels much improved already. feels comfortable with this care plan as well. Impression: Atypical chest pain-left shoulder pain/stable angina status post dialysis with history of same Definitive disposition and diagnosis as appropriate pending reevaluation and review of above. Left Shoulder Pain Score (Numeric/FACES): 7 - Related Data Allergies Allergy/AdvReac Type Severity Reaction Status Date / Time iodine Allergy Other Verified 08/05/16 16:03 enteric coat medications Allergy Other Uncoded 08/05/16 16:03 glue Allergy Other Uncoded 08/05/16 16:03 Home Meds: Home Meds Acetaminophen [Acetaminophen ER] 650 mg PO Q4H PRN 07/20/16 [History] Amino Acids/Protein Hydrolys [Prosource No Carb Liquid Pkt] 30 ml PO TID [History] Ascorbate Calcium [Vitamin C] 500 mg PO DAILY 07/20/16 [History] Aspirin [Halfprin] 81 mg PO DAILY 07/20/16 [History] Biotin/FA/Vit C/Vit B Complex [Nephrocaps] 1 cap PO DAILY 07/20/16 [History] Clopidogrel [Plavix] 75 mg PO BEDTIME 07/20/16 [History] Loperamide [Imodium AD] 2 mg PO ASDIRECTED PRN 07/20/16 [History] Nebivolol [Bystolic] 7.5 mg PO BEDTIME 07/20/16 [History] Nitroglycerin 0.4 mg SL ASDIRECTED PRN 07/20/16 [History] Pantoprazole Sodium [Protonix] 40 mg PO DAILY 07/20/16 [History] Petrolatum,White [Vaseline] 1 dose TP BEDTIME PRN 07/20/16 [History] Insulin Aspart [NovoLOG] See Protocol SUBCUT TIDAC #2 pen 07/21/16 [Rx] Bisacodyl [Dulcolax] 10 mg RECTAL DAILY PRN 08/05/16 [History] Docusate Sodium [Colace] 100 mg PO BID 08/05/16 [History] Gabapentin [Neurontin] 100 mg PO BEDTIME 08/05/16 [History] Insulin Aspart [Novolog] 2 unit SQ TIDAC 08/05/16 [History] Lisinopril 2.5 mg PO DAILY 08/05/16 [History] Past Medical History Cardiovascular History: Reports: Arrhythmia, Blood clots/VTE/DVT, CAD, Cardiomyopathy, RI, PVD, Other (see below) Other Cardiovascular History: pericarditis Respiratory History: Reports: None Gastrointestinal History: Reports: None Genitourinary History: Reports: Acute renal failure, Chronic renal insuffiency, Dialysis, Diabetic nephropathy Psychiatric History: Reports: None Endocrine/Metabolic History: Reports: Diabetes, type II Hematologic History: Reports: Anemia, Iron deficiency Oncologic (Cancer) History: Reports: None Dermatologic History: Reports: Decubitus ulcer - Infectious Disease History Infectious Disease History: Reports: Influenza - Past Surgical History Head Surgeries/Procedures: Reports: None Cardiovascular Surgical History: Reports: Coronary artery bypass, Coronary artery stent, Vascular surgery GI Surgical History: Reports: None Musculoskeletal Surgical History: Reports: Other (see below) Other Musculoskeletal Surgeries/Procedures:: left fifth toe amputation Dermatological Surgical History: Reports: Skin graft Social & Family History - Family History Family Medical History: Noncontributory HEENT: Reports: Impaired vision - Tobacco Use Smoking Status *Q: Never Smoker Second Hand Smoke Exposure: No - Caffeine Use Caffeine Use: Reports: Coffee - Recreational Drug Use Recreational Drug Use: No - Living Situation & Occupation Living situation: Reports: Occupation: retired ED ROS GENERAL - Review of Systems Review Of Systems: ROS reveals no pertinent complaints other than HPI. ED EXAM, GENERAL - Physical Exam Exam: See Below (See dictation) Course - Vital Signs Last Recorded V/S: Last Vital Signs Temp 36.7 C 08/05/16 16:08 Pulse 63 08/05/16 16:08 Resp 20 08/05/16 16:08 BP 116/52 L 08/05/16 16:08 Pulse Ox 95 08/05/16 16:08 - Orders/Labs/Meds Orders: Active Orders 24 hr Category Date Time Status Cardiac Monitoring [RC] . DIRECTED Care 08/05/16 16:01 Active EKG Documentation Completion [RC] STAT Care 08/05/16 16:01 Active Notify Provider Consults [RC] ASDIRECTED Care 08/05/16 17:26 Active Oxygen Therapy, ED [RC] ASDIRECTED Care 08/05/16 16:01 Active Pulse Oximetry [RC] ASDIRECTED Care 08/05/16 16:01 Active Consult to Physician [CONS] Stat Cons 08/05/16 17:26 Active Chest 1V Frontal [CR] Stat Exams 08/05/16 16:11 Taken Sodium Chloride 0.9% [Normal Saline] 250 ml Med 08/05/16 16:15 Active IV STAT Sodium Chloride 0.9% [Saline Flush] Med 08/05/16 16:01 Active 10 ml FLUSH ASDIRECTED PRN Sodium Chloride 0.9% [Saline Flush] Med 08/05/16 16:01 Active 2.5 ml FLUSH ASDIRECTED PRN Saline Lock Insert [OM.PC] Stat Oth 08/05/16 16:01 Ordered Medication Orders Sodium Chloride (Normal Saline) 250 mls @ 999 mls/hr IV STAT ALMA Last Admin: 08/05/16 16:47 Dose: 999 mls/hr Sodium Chloride (Saline Flush) 10 ml FLUSH ASDIRECTED PRN PRN Reason: Keep Vein Open Sodium Chloride (Saline Flush) 2.5 ml FLUSH ASDIRECTED PRN PRN Reason: Keep Vein Open Labs: Laboratory Tests 08/05/16 08/05/16 08/05/16 Range/Units 16:40 16:40 16:40 WBC 10.16 (4.0-11.0) K/uL RBC 3.90 L (4.50-5.90) M/uL Hgb 12.1 L (13.0-17.0) g/dL Hct 37.6 L (38.0-50.0) % MCV 96.4 (80.0-98.0) fL MCH 31.0 (27.0-32.0) pg MCHC 32.2 (31.0-37.0) g/dL RDW Std Deviation 55.7 (28.0-62.0) fl RDW Coeff of Becka 16 H (11.0-15.0) % Plt Count 115 L (150-400) K/uL MPV 10.40 (7.40-12.00) fL Neut % (Auto) 78.2 (48.0-80.0) % Lymph % (Auto) 6.9 L (16.0-40.0) % [place] % (Auto) 11.8 (0.0-15.0) % Eos % (Auto) 2.9 (0.0-7.0) % Baso % (Auto) 0.2 (0.0-1.5) % Neut # (Auto) 8.0 H (1.4-5.7) K/uL Lymph # (Auto) 0.7 (0.6-2.4) K/uL [place] # (Auto) 1.2 H (0.0-0.8) K/uL Eos # (Auto) 0.3 (0.0-0.7) K/uL Baso # (Auto) 0.0 (0.0-0.1) K/uL Nucleated RBC % 0.0 /100WBC Nucleated RBCs # 0 K/uL Sodium 134 L (136-146) mmol/L Potassium 4.0 (3.5-5.1) mmol/L Chloride 97 L (98-110) mmol/L Carbon Dioxide 21 (21-31) mmol/L BUN 22 (6.0-23.0) mg/dL Creatinine 2.7 H (0.6-1.5) mg/dL Est Cr Clr Drug Dosing 23.89 mL/min Estimated GFR (MDRD) 23.1 ml/min Glucose 166 H (60-110) mg/dL Calcium 7.8 L (8.8-10.8) mg/dL Total Bilirubin 0.6 (0.1-1.5) mg/dL AST 19 (5-40) IU/L ALT 11 (8-54) IU/L Alkaline Phosphatase 86 (40-150) Troponin I < 0.10 (0.0-0.29) NG/ML Total Protein 6.9 (6.0-8.0) g/dL Albumin 3.6 (3.4-4.8) g/dL Globulin 3.3 (2.0-3.5) g/dL Albumin/Globulin Ratio 1.1 L (1.3-2.8) Meds: Medications Generic Name Dose Route Start Last Admin Trade Name Freq PRN Reason Stop Dose Admin Sodium Chloride 250 mls @ 999 mls/hr 08/05/16 16:15 08/05/16 16:47 Normal Saline IV 999 mls/hr STAT ALMA Administration Sodium Chloride 10 ml 08/05/16 16:01 Saline Flush FLUSH ASDIRECTED PRN Keep Vein Open Sodium Chloride 2.5 ml 08/05/16 16:01 Saline Flush FLUSH ASDIRECTED PRN Keep Vein Open Discontinued Medications Generic Name Dose Route Start Last Admin Trade Name Freq PRN Reason Stop Dose Admin Ketorolac Tromethamine 30 mg 08/05/16 16:08 08/05/16 16:47 Toradol IVPUSH 08/05/16 16:09 30 mg ONETIME ONE Administration Departure - Departure Time of Disposition: 17:43 Disposition: DC/Tfer to SNF 03 Condition: good Clinical Impression: Anginal equivalent Forms: ED Department Discharge Additional Instructions: The following information is given to patients seen in the emergency department who are being discharged to home. This information is to outline your options for follow-up care. We provide all patients seen in our emergency department with a follow-up referral. The need for follow-up, as well as the timing and circumstances, are variable depending upon the specifics of your emergency department visit. If you don't have a primary care physician on staff, we will provide you with a referral. We always advise you to contact your personal physician following an emergency department visit to inform them of the circumstance of the visit and for follow-up with them and/or the need for any referrals to a consulting specialist. The emergency department will also refer you to a specialist when appropriate. This referral assures that you have the opportunity for followup care with a specialist. All of these measure are taken in an effort to provide you with optimal care, which includes your followup. Under all circumstances we always encourage you to contact your private physician who remains a resource for coordinating your care. When calling for followup care, please make the office aware that this follow-up is from your recent emergency room visit. If for any reason you are refused follow-up, please contact the [facility] emergency department at and ask to speak to the emergency department charge nurse. [facility] Primary care- Internal Medicine and [facility] [address] [place] [address] Please continue all home medications and return to ER as needed and as discussed. Plan to go to dialysis on Monday as scheduled. - My Orders Last 24 Hours: My Active Orders 08/05/16 16:01 Cardiac Monitoring [RC] . DIRECTED EKG Documentation Completion [RC] STAT Oxygen Therapy, ED [RC] ASDIRECTED Pulse Oximetry [RC] ASDIRECTED Sodium Chloride 0.9% [Saline Flush] 10 ml FLUSH ASDIRECTED PRN Sodium Chloride 0.9% [Saline Flush] 2.5 ml FLUSH ASDIRECTED PRN Saline Lock Insert [OM.PC] Stat 08/05/16 17:26 Notify Provider Consults [RC] ASDIRECTED Consult to Physician [CONS] Stat - Assessment/Plan Last 24 Hours: My Active Orders 08/05/16 16:01 Cardiac Monitoring [RC] . DIRECTED EKG Documentation Completion [RC] STAT Oxygen Therapy, ED [RC] ASDIRECTED Pulse Oximetry [RC] ASDIRECTED Sodium Chloride 0.9% [Saline Flush] 10 ml FLUSH ASDIRECTED PRN Sodium Chloride 0.9% [Saline Flush] 2.5 ml FLUSH ASDIRECTED PRN Saline Lock Insert [OM.PC] Stat 08/05/16 17:26 Notify Provider Consults [RC] ASDIRECTED Consult to Physician [CONS] Stat
[2016-08-05] MEDS ORDERED: Ketorolac 30 MG/ML SDV IVPUSH ONE (16:08)
[2016-08-05] MEDS ORDERED: Sodium Chloride 0.9% 250 ML IV SCH (16:15)
[2016-08-05 18:35] VITALS: BP 108/48
--- NOTE | 2016-08-06 00:07 | CONS ---
DATE OF CONSULTATION: DATE OF : 1940 PRIMARY CARE PHYSICIAN: None PCP REASON FOR CONSULTATION: Left shoulder pain. HISTORY OF PRESENT ILLNESS: This is a 76-year-old male with history of hypertension, dyslipidemia, diabetes, chronic kidney disease stage V requiring permanent dialysis, CAD status post CABG x4, recent PCI, and ischemic cardiomyopathy of 25%. He is still in a rehab at [facility]. This afternoon, when he was at the dialysis, he was noted to have hypotension with a blood pressure of 60 to 70 systolically and he completed the dialysis session, 20 minute after he started having right shoulder pain and he confirmed that the pain is similar to the time that he had a heart attack. It was not very severe, however, it was 6-7 from 10 pain scale. He was at the [facility]. The blood pressure was 90/60. He requested to have a nitroglycerin, however, with the low blood pressure, it was refused to be given and then the [facility] staff contacted me to see what to do. I recommended him to come to the emergency room to make sure that he does not have an MA. In the emergency room, he still has some right shoulder pain; however, after Toradol IV, it seemed to be subsiding. Troponin was negative. EKG, no changes and the blood pressure seemed to be improving to 102 systolically. PAST MEDICAL HISTORY: Includin. CAD status post CABG x4 in [facility] in September 2012. At that time, he had LOJA to LAD, SVG to OM1 and OM2, as well as SVG to PDA and also is December 2012, he underwent a bypass graft to his left extremity from common femoral artery to anterior tibial arteries and also has a left superficial artery stent as well as popliteal artery and posterior tibial artery stent. 2. 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 3. Diabetes. 4. Hypertension. 5. Hyperlipidemia. 6. Established end-stage renal disease. SOCIAL HISTORY: Noncontributory. Never smoked. Drinks coffee. No illicit drug use. Current stay in the rehab facility. REVIEW OF SYSTEMS: Except indicated in the HPI, a 12-point review of systems is negative. ALLERGIES: Allergy he is allergic to iodine, glue, enteric coated medication. PHYSICAL EXAMINATION: VITAL SIGNS: Blood pressure 107/43, heart rate 58, respirations 18, O2 saturation 98 on room air. HEENT: Mild pale. Mildly dry. I did not appreciate JVD. HEART: Normal. S1, S2. No murmur. Regular rate and rhythm. LUNGS: Minimal crackles bilaterally. ABDOMEN: Soft, nontender. Bowel sounds present. No hepatosplenomegaly. SKIN: Sternotomy scar, 1+ edema bilaterally with some open wound. LABORATORY DATA: CBC showed WBC 10, hematocrit 37, platelet 115. Sodium 134, potassium 4, chloride 97, BUN 22, creatinine 2.7, troponin less than 0.1. EKG is sinus rhythm, seemed to be interventricular conduction delay and ST- segment seemed to be similar from the last time, however, is mildly elevated. ASSESSMENT: This is a 76-year-old male, history of CAD status post CABG, recent non-STEMI, LAD stent, RCA stent, PDA PTCA. With the left shoulder pain after dialysis session with hypotension during dialysis. Seemed to be angina equivalent and could be triggered by volume shift and hypotension episode during dialysis. Currently he is not having an MA and his chest pain seemed to be coming down. I definitely will get in touch with Dr. Minaya who is the Parking Regulation Enforcement Officer in [place] as well as Dr. Pitts, hris coordinator, regarding dialysis session and he will be getting dialysis on Monday, as well as we will have a fistula placed on next Monday which is on August 08. The patient's is wondering if he could be an inpatient. I explained to her that it is up to hospitalist in [facility] and she should address it to hospitalist over there for possible admission instead of observation. JUSTICE HOGAN /[id number] ADINA
--- NOTE | 2016-08-08 14:49 | CR ---
EXAM DATE: 08/05/16 PATIENT'S AGE: 76 Patient: TERRENCE BRAY Facility: [place], [place] Site . Site : 1940 Study: XRay Chest [id number]/5/2017 5:13:30 PM Ordering Physician: Annetta Shaffer Final Report: INDICATION: Chest pain. TECHNIQUE: Chest radiograph 1 view COMPARISON: 07/25/2016. FINDINGS: Low lung volumes with evidence of prior median sternotomy. Right central venous catheter, tip position unchanged. Small bilateral pleural effusions with residual linear atelectasis and or infiltrate at the left lung base. Upper lung zones remain clear. IMPRESSION: 1. No acute interval changes from 07/25/2016. Trace bilateral pleural effusions with left basilar atelectasis and/or infiltrate. Dictated by Bipin Hardy MD @ 08/05/2016 5:40:56 PM Dictated by: Bipin Hardy MD @ 08/05/2016 17:41:01 (Electronic Signature) Report Signed by Proxy. ADINA
== END 2016-08-05 18:07 | disposition home or self-care (01) ==
LOC: MW.ED 15:44
DX: I20.8 Other forms of angina pectoris (principal); E11.21 Type 2 diabetes mellitus with diabetic nephropathy; E11.22 Type 2 diabetes mellitus with diabetic chronic kidney disease; N18.9 Chronic kidney disease, unspecified; I25.810 Atherosclerosis of coronary artery bypass graft(s) without angina pectoris; I73.9 Peripheral vascular disease, unspecified; I25.2 Old myocardial infarction; Z88.8 Allergy status to other drugs, medicaments and biological substances; Z79.82 Long term (current) use of aspirin; Z89.422 Acquired absence of other left toe(s); Z99.2 Dependence on renal dialysis; Z79.899 Other long term (current) drug therapy; Z79.4 Long term (current) use of insulin; Z86.2 Personal history of diseases of the blood and blood-forming organs and certain disorders involving the immune mechanism
CPT/HCPCS: 36415; 71010; 80053; 84484; 85025; 93005; 96361; 96374; 99285; J1885; J7050

== ENCOUNTER → 2016-08-23 | Outpatient (CLI) | payer MEDICARE | LOC: MW.CHIM 08:00 | PROVIDERS: ATTEND Internal Medicine | DX: I25.10 Atherosclerotic heart disease of native coronary artery without angina pectoris (principal); E11.9 Type 2 diabetes mellitus without complications; E78.5 Hyperlipidemia, unspecified; I50.9 Heart failure, unspecified | CPT/HCPCS: 99214 ==

== ENCOUNTER 2016-09-30 15:47 | Emergency (ER) | payer MEDICARE ==
[2016-09-30] MEDS ORDERED: Sodium Chloride 0.9% 10 ML Syringe FLUSH PRN (16:13)
[2016-09-30] MEDS ORDERED: Sodium Chloride 0.9% 2.5 ML Syringe FLUSH PRN (16:13)
[2016-09-30] MEDS ORDERED: Albuterol/Ipratropium 3.0-0.5 MG/3 ML Neb Soln NEB ONE (16:13)
[2016-09-30] MEDS ORDERED: methylPREDNISolone Sodium Succinate 125 MG/2 ML SDV IVPUSH ONE (16:13)
--- NOTE | 2016-09-30 16:30 | EDM.PDOC ---
ED HPI GENERAL MEDICAL PROBLEM - General Chief Complaint: Respiratory Problem Stated Complaint: WHEEZING Time Seen by Provider: 09/30/16 16:27 Source of Information: Reports: Patient, Family History Limitations: Reports: No Limitations - History of Present Illness INITIAL COMMENTS - FREE TEXT/NARRATIVE: HISTORY AND PHYSICAL: []76-year-old male presenting with shortness of breath coughing History of Present Illness: []This patient lives at home his history of CABG, angina, angioplasty, and stents mid July of this year, his diabetes, ischemic cardiomyopathy with ejection fraction 25%, and stage renal disease. He just presented from dialysis (Monday and Fridays) he has peripheral neuropathy hypertension, left leg DVT As he presents today he is complaining of the home care who has been coughing when they have been coming to his house. His cough is productive green and yellow Review of Systems: As per history of present illness and below otherwise all systems reviewed and negative. Past medical history: As per history of present illness and as reviewed below otherwise noncontributory. Surgical history: As per history of present illness and as reviewed below otherwise noncontributory. Social history: No reported history of drug or alcohol abuse. Family history: As per history of present illness and as reviewed below otherwise noncontributory. Physical exam: Alert gentleman answering questions in a rambling fashion, skin is warm and dry HEENT: Atraumatic, normocehpalic, pupils reactive, negative for conjunctival pallor or scleral icterus, mucous membranes moist, throat clear, neck supple, nontender, trachea midline. Productive cough yellow with tolentino. Lungs: Wheezing and crackles on auscultation, breath sounds equal bilaterally, with poor inspiratory expiratory effort. chest non tender. Heart: S1S2, regular, negative for clicks, rubs, or JVD. Abdomen: Soft, nondistended, nontender. Negative for masses or hepatossplenmegaly. Negative for costovertebral tenderness. Extremities: Atraumatic, negative for cords or calf pain. Neurovascular unremarkable. Neuro: Awake, alert, oriented. Cranial nerves II through XII unremarkable. Cerebellum unremarkable. Motor and sensory unremarkable throughout. Exam nonfocal. Improvement noted in air exchange after DuoNeb treatment Diagnostics: [CBC CMP chest x-ray] Therapeutics: [DuoNeb treatment] Impression: [Respiratory infection exacerbation COPD] Plan: []Azithromycin Follow-up with your primary primary care provider next week Definitive disposition and diagnosis as appropriate pending reevaluation and review of above. - Related Data Allergies Allergy/AdvReac Type Severity Reaction Status Date / Time iodine Allergy Other Verified 08/05/16 16:03 enteric coat medications Allergy Other Uncoded 08/05/16 16:03 glue Allergy Other Uncoded 08/05/16 16:03 Home Meds: Home Meds Acetaminophen [Acetaminophen ER] 650 mg PO Q4H PRN 07/20/16 [History] Amino Acids/Protein Hydrolys [Prosource No Carb Liquid Pkt] 30 ml PO TID [History] Ascorbate Calcium [Vitamin C] 500 mg PO DAILY 07/20/16 [History] Aspirin [Halfprin] 81 mg PO DAILY 07/20/16 [History] Biotin/FA/Vit C/Vit B Complex [Nephrocaps] 1 cap PO DAILY 07/20/16 [History] Clopidogrel [Plavix] 75 mg PO BEDTIME 07/20/16 [History] Loperamide [Imodium AD] 2 mg PO ASDIRECTED PRN 07/20/16 [History] Nebivolol [Bystolic] 7.5 mg PO BEDTIME 07/20/16 [History] Nitroglycerin 0.4 mg SL ASDIRECTED PRN 07/20/16 [History] Pantoprazole Sodium [Protonix] 40 mg PO DAILY 07/20/16 [History] Petrolatum,White [Vaseline] 1 dose TP BEDTIME PRN 07/20/16 [History] Insulin Aspart [NovoLOG] See Protocol SUBCUT TIDAC #2 pen 07/21/16 [Rx] Bisacodyl [Dulcolax] 10 mg RECTAL DAILY PRN 08/05/16 [History] Docusate Sodium [Colace] 100 mg PO BID 08/05/16 [History] Gabapentin [Neurontin] 100 mg PO BEDTIME 08/05/16 [History] Insulin Aspart [Novolog] 2 unit SQ TIDAC 08/05/16 [History] Lisinopril 2.5 mg PO DAILY 08/05/16 [History] Azithromycin [IJD: Azithromycin] 250 mg PO DAILY #6 tab 09/30/16 [Rx] Past Medical History Cardiovascular History: Reports: Arrhythmia, Blood Clots/VTE/DVT, CAD, Cardiomyopathy, [place], PVD, Other (See Below) Other Cardiovascular History: pericarditis Respiratory History: Reports: None Gastrointestinal History: Reports: None Genitourinary History: Reports: Acute Renal Failure, Chronic Renal Insuffiency, Dialysis, Diabetic Nephropathy Psychiatric History: Reports: None Endocrine/Metabolic History: Reports: Diabetes, Type II Hematologic History: Reports: Anemia, Iron Deficiency Oncologic (Cancer) History: Reports: None Dermatologic History: Reports: Decubitus Ulcer - Infectious Disease History Infectious Disease History: Reports: Influenza - Past Surgical History Cardiovascular Surgical History: Reports: Coronary Artery Bypass, Coronary Artery Stent, Vascular Surgery Musculoskeletal Surgical History: Reports: Other (See Below) Dermatological Surgical History: Reports: Skin Graft Social & Family History - Family History Family Medical History: Noncontributory HEENT: Reports: Impaired Vision - Tobacco Use Smoking Status *Q: Never Smoker Second Hand Smoke Exposure: No - Caffeine Use Caffeine Use: Reports: Coffee - Recreational Drug Use Recreational Drug Use: No - Living Situation & Occupation Living situation: Reports: Occupation: Retired ED ROS GENERAL - Review of Systems Review Of Systems: ROS reveals no pertinent complaints other than HPI. ED EXAM, GENERAL - Physical Exam Exam: See Below (see dictation) Course - Vital Signs Last Recorded V/S: Last Vital Signs Temp 36.4 C 09/30/16 17:24 Pulse 66 09/30/16 17:24 Resp 20 09/30/16 17:24 BP 131/60 09/30/16 17:24 Pulse Ox 98 09/30/16 17:24 - Orders/Labs/Meds Orders: Active Orders 24 hr Category Date Time Status RT Aerosol Therapy [RC] ASDIRECTED Care 09/30/16 16:13 Active Chest 1V Frontal [CR] Stat Exams 09/30/16 17:03 Taken Chest 2V [CR] Stat Exams 09/30/16 16:20 Stop Req Sodium Chloride 0.9% [Saline Flush] Med 09/30/16 16:13 Active 10 ml FLUSH ASDIRECTED PRN Sodium Chloride 0.9% [Saline Flush] Med 09/30/16 16:13 Active 2.5 ml FLUSH ASDIRECTED PRN Saline Lock Insert [OM.PC] Stat Oth 09/30/16 16:13 Ordered Medication Orders Sodium Chloride (Saline Flush) 10 ml FLUSH ASDIRECTED PRN PRN Reason: Keep Vein Open Sodium Chloride (Saline Flush) 2.5 ml FLUSH ASDIRECTED PRN PRN Reason: Keep Vein Open Labs: Laboratory Tests 09/30/16 09/30/16 Range/Units 15:25 15:25 WBC 10.43 (4.0-11.0) K/uL RBC 4.01 L (4.50-5.90) M/uL Hgb 12.7 L (13.0-17.0) g/dL Hct 40.3 (38.0-50.0) % MCV 100.5 H (80.0-98.0) fL MCH 31.7 (27.0-32.0) pg MCHC 31.5 (31.0-37.0) g/dL RDW Std Deviation 54.9 (28.0-62.0) fl RDW Coeff of Becka 15 (11.0-15.0) % Plt Count 234 (150-400) K/uL MPV 9.90 (7.40-12.00) fL Neut % (Auto) 72.6 (48.0-80.0) % Lymph % (Auto) 8.1 L (16.0-40.0) % [place] % (Auto) 14.7 (0.0-15.0) % Eos % (Auto) 4.1 (0.0-7.0) % Baso % (Auto) 0.5 (0.0-1.5) % Neut # (Auto) 7.6 H (1.4-5.7) K/uL Lymph # (Auto) 0.9 (0.6-2.4) K/uL [place] # (Auto) 1.5 H (0.0-0.8) K/uL Eos # (Auto) 0.4 (0.0-0.7) K/uL Baso # (Auto) 0.1 (0.0-0.1) K/uL Nucleated RBC % 0.0 /100WBC Nucleated RBCs # 0 K/uL Sodium 137 (136-146) mmol/L Potassium 3.7 (3.5-5.1) mmol/L Chloride 99 (98-110) mmol/L Carbon Dioxide 28 (21-31) mmol/L BUN 11 (6.0-23.0) mg/dL Creatinine 1.9 H (0.6-1.5) mg/dL Est Cr Clr Drug Dosing 31.83 mL/min Estimated GFR (MDRD) 34.6 ml/min Glucose 156 H (60-110) mg/dL Calcium 8.3 L (8.8-10.8) mg/dL Total Bilirubin 0.5 (0.1-1.5) mg/dL AST 15 (5-40) IU/L ALT 10 (8-54) IU/L Alkaline Phosphatase 103 (40-150) Total Protein 7.0 (6.0-8.0) g/dL Albumin 3.4 (3.4-4.8) g/dL Globulin 3.6 H (2.0-3.5) g/dL Albumin/Globulin Ratio 0.9 L (1.3-2.8) Meds: Medications Generic Name Dose Route Start Last Admin Trade Name Freq PRN Reason Stop Dose Admin Sodium Chloride 10 ml 09/30/16 16:13 Saline Flush FLUSH ASDIRECTED PRN Keep Vein Open Sodium Chloride 2.5 ml 09/30/16 16:13 Saline Flush FLUSH ASDIRECTED PRN Keep Vein Open Discontinued Medications Generic Name Dose Route Start Last Admin Trade Name Freq PRN Reason Stop Dose Admin Albuterol/Ipratropium 3 ml 09/30/16 16:13 09/30/16 16:21 Duoneb 3.0-0.5 Mg/3 Ml NEB 09/30/16 16:14 3 ml ONETIME ONE Administration Methylprednisolone Sodium Succinate 125 mg 09/30/16 16:13 09/30/16 16:49 Solu-Medrol IVPUSH 09/30/16 16:14 125 mg ONETIME ONE Administration Departure - Departure Time of Disposition: 17:34 Disposition: Home, Self-Care 01 Condition: Good Clinical Impression: Acute bronchiolitis Qualifiers: Bronchiolitis organism: unspecified organism Qualified Code(s): J21.9 - Acute bronchiolitis, unspecified - Discharge Information Prescriptions: Azithromycin [IJD: Azithromycin] 250 mg PO DAILY #6 tab Forms: ED Department Discharge - My Orders Last 24 Hours: My Active Orders 09/30/16 16:13 RT Aerosol Therapy [RC] ASDIRECTED Sodium Chloride 0.9% [Saline Flush] 10 ml FLUSH ASDIRECTED PRN Sodium Chloride 0.9% [Saline Flush] 2.5 ml FLUSH ASDIRECTED PRN Saline Lock Insert [OM.PC] Stat 09/30/16 16:20 Chest 2V [CR] Stat 09/30/16 17:03 Chest 1V Frontal [CR] Stat - Assessment/Plan Last 24 Hours: My Active Orders 09/30/16 16:13 RT Aerosol Therapy [RC] ASDIRECTED Sodium Chloride 0.9% [Saline Flush] 10 ml FLUSH ASDIRECTED PRN Sodium Chloride 0.9% [Saline Flush] 2.5 ml FLUSH ASDIRECTED PRN Saline Lock Insert [OM.PC] Stat 09/30/16 16:20 Chest 2V [CR] Stat 09/30/16 17:03 Chest 1V Frontal [CR] Stat
[2016-09-30] MEDS ORDERED: Ampicillin 500 MG Cap PO SCH (17:45)
[2016-09-30 18:07] VITALS: BP 128/62
--- NOTE | 2016-10-03 13:37 | CR ---
EXAM DATE: 09/30/16 PATIENT'S AGE: 76 Patient: TERRENCE BRAY Facility: [place], [place] Site . Site : 1940 Study: XRay Chest [id number]/[id number] 5:22:05 PM Ordering Physician: Doctor Art Final Report: Indication: Shortness of breath and wheezing Technique: Chest 1 view Comparison: 09/16/2016 Findings/Impression: Cardiovascular and mediastinum: Grossly stable cardiomediastinal silhouette. Lungs and pleural space: Low lung volumes. An ill-defined left perihilar opacity , not seen on the prior, concerning for an infiltrate. Correlate clinically and followup. A small right pleural effusion versus pleural scarring again seen. Bones and soft tissues: A tunneled right chest catheter again noted. Dictated by Yanick Pepe MD @ 09/30/2016 5:45:49 PM Dictated by: Yanick Pepe MD @ 09/30/2016 17:45:52 (Electronic Signature) Report Signed by Proxy. ADINA
== END 2016-09-30 18:00 | disposition home or self-care (01) ==
LOC: MW.ED 15:47
DX: J44.0 Chronic obstructive pulmonary disease with (acute) lower respiratory infection (principal); J21.9 Acute bronchiolitis, unspecified; J44.1 Chronic obstructive pulmonary disease with (acute) exacerbation; I25.2 Old myocardial infarction; I25.810 Atherosclerosis of coronary artery bypass graft(s) without angina pectoris; N18.9 Chronic kidney disease, unspecified; E11.9 Type 2 diabetes mellitus without complications; Z86.2 Personal history of diseases of the blood and blood-forming organs and certain disorders involving the immune mechanism; Z99.2 Dependence on renal dialysis; Z98.890 Other specified postprocedural states; Z79.4 Long term (current) use of insulin; Z79.2 Long term (current) use of antibiotics; Z79.899 Other long term (current) drug therapy; Z79.82 Long term (current) use of aspirin; Z88.8 Allergy status to other drugs, medicaments and biological substances; Z95.1 Presence of aortocoronary bypass graft; Z95.5 Presence of coronary angioplasty implant and graft
CPT/HCPCS: 71010; 80053; 85025; 94664; 96374; 99285; J2930; 99284

== ENCOUNTER 2017-04-19 16:23 | Emergency (ER) | payer MEDICARE ==
[2017-04-19] MEDS ORDERED: Sodium Chloride 0.9% 1,000 ML IV ONE ×2 (16:30→17:26)
--- NOTE | 2017-04-19 16:32 | EDM.PDOC ---
ED HPI GENERAL MEDICAL PROBLEM - General Stated Complaint: UNK Time Seen by Provider: 04/19/17 16:30 Source of Information: Reports: Patient, Family - History of Present Illness INITIAL COMMENTS - FREE TEXT/NARRATIVE: HISTORY AND PHYSICAL: History of present illness: [Alcides is well known to me He was in dialysis today and spiked fever apparently was doing well at his baseline this morning, sometime in the early afternoon he spiked fever up to 102 is very lethargic and not responding, at this time he does look around but does not speak he appears very weak. He did complete a full dialysis and presents from the dialysis unit ] Review of systems: As per history of present illness and below otherwise all systems reviewed and negative. Past medical history: As per history of present illness and as reviewed below otherwise noncontributory. Surgical history: As per history of present illness and as reviewed below otherwise noncontributory. Social history: No reported history of drug or alcohol abuse. Family history: As per history of present illness and as reviewed below otherwise noncontributory. Physical exam: HEENT: Atraumatic, normocephalic, pupils reactive, negative for conjunctival pallor or scleral icterus, mucous membranes moist, throat clear, neck supple, nontender, trachea midline. Lungs: Clear to auscultation, breath sounds equal bilaterally, chest nontender. Heart: S1S2, regular, negative for clicks, rubs, or JVD. Abdomen: Soft, nondistended, nontender. Negative for masses or hepatosplenomegaly. Negative for costovertebral tenderness. Pelvis: Stable nontender. Genitourinary: Deferred. Rectal: Deferred. Extremities: Atraumatic, negative for cords or calf pain. Neurovascular unremarkable. Recent partial foot amputation noted Neuro: Awake, alert, oriented. Cranial nerves II through XII unremarkable. Cerebellum unremarkable. Motor and sensory unremarkable throughout. Exam nonfocal. Diagnostics: [CBC CMP UA cardiac enzymes Blood cultures lactic acid EKG Chest 1 view Patient's troponin is being called back from the lab that 5.8, EKG does not reveal any acute change ] Therapeutics: Normal saline 1 25 mL per hour Zosyn 2.25 g IV Vancomycin 1 g IV Lovenox 100 mg subcutaneous was added Morphine 2 mg IV Patient cannot swallow aspirin at this time, he did take his aspirin Plavix and Lipitor this morning Patient is being transferred by [facility] to [facility], Doctor Dallin excepting in [place] Impression: [Fever] Hypotension Rule out sepsis Acute coronary syndrome, significantly elevated troponin with hypotension Renal failure with dialysis Recent partial foot amputation Definitive disposition and diagnosis as appropriate pending reevaluation and review of above. - Related Data Allergies Allergy/AdvReac Type Severity Reaction Status Date / Time iodine Allergy Other Verified 04/19/17 16:31 enteric coat medications Allergy Other Uncoded 08/05/16 16:03 glue Allergy Other Uncoded 08/05/16 16:03 Past Medical History HEENT History: Reports: Other (See Below) Other HEENT History: conjunctivitis Cardiovascular History: Reports: Arrhythmia, Blood Clots/VTE/DVT, CAD, Cardiomyopathy, [place], PVD, Other (See Below) Other Cardiovascular History: pericarditis Respiratory History: Reports: None Gastrointestinal History: Reports: None Genitourinary History: Reports: Acute Renal Failure, Chronic Renal Insuffiency, Dialysis, Diabetic Nephropathy Psychiatric History: Reports: None Endocrine/Metabolic History: Reports: Diabetes, Type II Hematologic History: Reports: Anemia, Iron Deficiency Oncologic (Cancer) History: Reports: None Dermatologic History: Reports: Decubitus Ulcer - Infectious Disease History Infectious Disease History: Reports: Influenza - Past Surgical History Cardiovascular Surgical History: Reports: Coronary Artery Bypass, Coronary Artery Stent, Vascular Surgery Musculoskeletal Surgical History: Reports: Other (See Below) Dermatological Surgical History: Reports: Skin Graft Social & Family History - Family History Family Medical History: Noncontributory HEENT: Reports: Impaired Vision - Tobacco Use Smoking Status *Q: Never Smoker Second Hand Smoke Exposure: No - Caffeine Use Caffeine Use: Reports: Coffee - Recreational Drug Use Recreational Drug Use: No - Living Situation & Occupation Living situation: Reports: Occupation: Retired ED ROS GENERAL - Review of Systems Review Of Systems: ROS reveals no pertinent complaints other than HPI. ED EXAM, GENERAL - Physical Exam Exam: See Below Course - Vital Signs Last Recorded V/S: Last Vital Signs Temp 102.1 F H 04/19/17 16:32 Pulse 89 04/19/17 16:32 Resp 42 H 04/19/17 16:32 BP 99/40 L 04/19/17 16:32 Pulse Ox 96 04/19/17 16:32 - Orders/Labs/Meds Orders: Active Orders 24 hr Category Date Time Status EKG Documentation Completion [RC] STAT Care 04/19/17 16:30 Active Chest 1V Frontal [CR] Stat Exams 04/19/17 16:30 Taken CULTURE BLOOD [BC] Stat Lab 04/19/17 14:59 Received CULTURE BLOOD [BC] Stat Lab 04/19/17 15:20 Received Sodium Chloride 0.9% [Normal Saline] 1,000 ml Med 04/19/17 17:26 Active IV .Bolus Blood Culture x2 Reflex Set [OM.PC] Stat Oth 04/19/17 16:30 Ordered Medication Orders Sodium Chloride (Normal Saline) 1,000 mls @ 999 mls/hr IV .Bolus ONE Stop: 04/19/17 18:26 Labs: Laboratory Tests 04/19/17 04/19/17 04/19/17 Range/Units 16:35 16:35 16:35 WBC 28.03 H (4.0-11.0) K/uL RBC 3.64 L (4.50-5.90) M/uL Hgb 11.7 L (13.0-17.0) g/dL Hct 36.5 L (38.0-50.0) % MCV 100.3 H (80.0-98.0) fL MCH 32.1 H (27.0-32.0) pg MCHC 32.1 (31.0-37.0) g/dL RDW Std Deviation 52.3 (28.0-62.0) fl RDW Coeff of Becka 14 (11.0-15.0) % Plt Count 156 (150-400) K/uL MPV 9.40 (7.40-12.00) fL Add Manual Diff YES Neutrophils % (Manual) 84 H (48.0-80.0) % Band Neutrophils % 7 % Lymphocytes % (Manual) 4 L (16.0-40.0) % Monocytes % (Manual) 5 (0.0-15.0) % Nucleated RBC % 0.0 /100WBC Absolute Seg Neuts 23.5 H (1.4-5.7) Band Neutrophils # 2.0 Lymphocytes # (Manual) 1.1 (0.6-2.4) Monocytes # (Manual) 1.4 H (0.0-0.8) Nucleated RBCs # 0 K/uL INR 1.15 H (0.86-1.11) Lactate (0.20-2.00) mmol/L Sodium 134 L (136-146) mmol/L Potassium 3.9 (3.5-5.1) mmol/L Chloride 95 L (98-110) mmol/L Carbon Dioxide 24 (21-31) mmol/L BUN 12 (6.0-23.0) mg/dL Creatinine 2.5 H (0.6-1.5) mg/dL Est Cr Clr Drug Dosing 25.56 mL/min Estimated GFR (MDRD) 25.2 ml/min Glucose 211 H (60-110) mg/dL Calcium 9.0 (8.8-10.8) mg/dL Total Bilirubin 0.6 (0.1-1.5) mg/dL AST 52 H (5-40) IU/L ALT 29 (8-54) IU/L Alkaline Phosphatase 76 (40-150) Creatine Kinase 270 H (9-236) IU/L CK-MB (CK-2) 6.4 (0-6.6) ng/ml Troponin I 5.87 H* (0.0-0.29) NG/ML B-Natriuretic Peptide (<100) PG/ML Total Protein 7.2 (6.0-8.0) g/dL Albumin 3.8 (3.4-4.8) g/dL Globulin 3.4 (2.0-3.5) g/dL Albumin/Globulin Ratio 1.1 L (1.3-2.8) Urine Color Urine Appearance Urine pH (5.0-8.0) Ur Specific [place] (1.001-1.035) Urine Protein (NEGATIVE) mg/dL Urine Glucose (UA) (NEGATIVE) mg/dL Urine Ketones (NEGATIVE) mg/dL Urine Occult Blood (NEGATIVE) Urine Nitrite (NEGATIVE) Urine Bilirubin (NEGATIVE) Urine Urobilinogen (<2.0) EU/dL Ur Leukocyte Esterase (NEGATIVE) Urine RBC (0-2/HPF) Urine WBC (0-5/HPF) Ur Epithelial Cells (NONE-FEW) Amorphous Sediment (NEGATIVE) Urine Bacteria (NEGATIVE) 04/19/17 04/19/17 04/19/17 Range/Units 16:35 16:35 17:14 WBC (4.0-11.0) K/uL RBC (4.50-5.90) M/uL Hgb (13.0-17.0) g/dL Hct (38.0-50.0) % MCV (80.0-98.0) fL MCH (27.0-32.0) pg MCHC (31.0-37.0) g/dL RDW Std Deviation (28.0-62.0) fl RDW Coeff of Becka (11.0-15.0) % Plt Count (150-400) K/uL MPV (7.40-12.00) fL Add Manual Diff Neutrophils % (Manual) (48.0-80.0) % Band Neutrophils % % Lymphocytes % (Manual) (16.0-40.0) % Monocytes % (Manual) (0.0-15.0) % Nucleated RBC % /100WBC Absolute Seg Neuts (1.4-5.7) Band Neutrophils # Lymphocytes # (Manual) (0.6-2.4) Monocytes # (Manual) (0.0-0.8) Nucleated RBCs # K/uL INR (0.86-1.11) Lactate 2.6 H (0.20-2.00) mmol/L Sodium (136-146) mmol/L Potassium (3.5-5.1) mmol/L Chloride (98-110) mmol/L Carbon Dioxide (21-31) mmol/L BUN (6.0-23.0) mg/dL Creatinine (0.6-1.5) mg/dL Est Cr Clr Drug Dosing mL/min Estimated GFR (MDRD) ml/min Glucose (60-110) mg/dL Calcium (8.8-10.8) mg/dL Total Bilirubin (0.1-1.5) mg/dL AST (5-40) IU/L ALT (8-54) IU/L Alkaline Phosphatase (40-150) Creatine Kinase (9-236) IU/L CK-MB (CK-2) (0-6.6) ng/ml Troponin I (0.0-0.29) NG/ML B-Natriuretic Peptide > 3306 H (<100) PG/ML Total Protein (6.0-8.0) g/dL Albumin (3.4-4.8) g/dL Globulin (2.0-3.5) g/dL Albumin/Globulin Ratio (1.3-2.8) Urine Color YELLOW Urine Appearance CLEAR Urine pH 6.5 (5.0-8.0) Ur Specific [place] 1.020 (1.001-1.035) Urine Protein >=300 (NEGATIVE) mg/dL Urine Glucose (UA) NEGATIVE (NEGATIVE) mg/dL Urine Ketones NEGATIVE (NEGATIVE) mg/dL Urine Occult Blood NEGATIVE (NEGATIVE) Urine Nitrite NEGATIVE (NEGATIVE) Urine Bilirubin NEGATIVE (NEGATIVE) Urine Urobilinogen 0.2 (<2.0) EU/dL Ur Leukocyte Esterase NEGATIVE (NEGATIVE) Urine RBC 0-1 (0-2/HPF) Urine WBC 3-6 (0-5/HPF) Ur Epithelial Cells RARE (NONE-FEW) Amorphous Sediment MODERATE (NEGATIVE) Urine Bacteria 1+ H (NEGATIVE) Meds: Medications Generic Name Dose Route Start Last Admin Trade Name Freq PRN Reason Stop Dose Admin Sodium Chloride 1,000 mls @ 999 mls/hr 04/19/17 17:26 Normal Saline IV 04/19/17 18:26 .Bolus ONE Discontinued Medications Generic Name Dose Route Start Last Admin Trade Name Freq PRN Reason Stop Dose Admin Enoxaparin Sodium Confirm 04/19/17 17:22 Lovenox Administered 04/19/17 17:23 Dose 100 mg .ROUTE .STK-MED ONE Enoxaparin Sodium 100 mg 04/19/17 17:18 Lovenox SUBCUT 04/19/17 17:19 ONETIME ONE Sodium Chloride 1,000 mls @ 999 mls/hr 04/19/17 16:30 Normal Saline IV 04/19/17 17:30 STAT ONE Piperacillin Sod/Tazobactam 50 mls @ 100 mls/hr 04/19/17 16:40 Sod 2.25 gm/ Sodium Chloride IV 04/19/17 17:09 ONETIME ONE Vancomycin HCl 1 gm/ Sodium 250 mls @ 250 mls/hr 04/19/17 16:40 Chloride IV 04/19/17 17:39 ONETIME ONE Morphine Sulfate 2 mg 04/19/17 17:27 Morphine IVPUSH 04/19/17 17:28 ONETIME ONE Morphine Sulfate Confirm 04/19/17 17:28 Morphine Administered 04/19/17 17:29 Dose 2 mg .ROUTE .STK-MED ONE Departure - Departure Time of Disposition: 17:49 Disposition: DC/Tfer to Other 70 Condition: Critical Clinical Impression: Hypotension, Acute coronary syndrome - Discharge Information Referrals: PCP,None [Primary Care Provider] - - My Orders Last 24 Hours: My Active Orders 04/19/17 14:59 CULTURE BLOOD [BC] Stat 04/19/17 15:20 CULTURE BLOOD [BC] Stat 04/19/17 16:30 EKG Documentation Completion [RC] STAT Chest 1V Frontal [CR] Stat Blood Culture x2 Reflex Set [OM.PC] Stat 04/19/17 17:26 Sodium Chloride 0.9% [Normal Saline] 1,000 ml IV .Bolus - Assessment/Plan Last 24 Hours: My Active Orders 04/19/17 14:59 CULTURE BLOOD [BC] Stat 04/19/17 15:20 CULTURE BLOOD [BC] Stat 04/19/17 16:30 EKG Documentation Completion [RC] STAT Chest 1V Frontal [CR] Stat Blood Culture x2 Reflex Set [OM.PC] Stat 04/19/17 17:26 Sodium Chloride 0.9% [Normal Saline] 1,000 ml IV .Bolus
[2017-04-19 16:35] VITALS: BP 99/40
[2017-04-19] MEDS ORDERED: Piperacillin/Tazobactam 2.25 GM in Sodium Chloride 0.9% 50 ML IV ONE (16:40)
[2017-04-19] MEDS ORDERED: Enoxaparin 100 MG/1 ML Syringe SUBCUT ONE (17:18)
[2017-04-19] MEDS ORDERED: Enoxaparin 100 MG/1 ML Syringe ONE (17:22)
[2017-04-19] MEDS ORDERED: Morphine 2 MG/ML Syringe IVPUSH ONE (17:27)
[2017-04-19] MEDS ORDERED: Morphine 2 MG/ML Syringe ONE (17:28)
--- NOTE | 2017-04-20 16:09 | CR ---
EXAM DATE: 04/19/17 PATIENT'S AGE: 77 Patient: TERRENCE BRAY Facility: [place], [place] Site . Site : 1940 Study: XRay Chest [id number]/17/2018 5:30:37 PM Ordering Physician: Doctor Art Final Report: INDICATION: Shortness of breath and chest pain TECHNIQUE: Chest 1 view. COMPARISON: 09/30/2016 FINDINGS: The patient is rotated to the left. Cardiovascular and mediastinum: Heart size and vasculature are normal in caliber and appearance. Sternotomy wires identified. Mediastinum is within normal limits. Central line tip terminates in the right atrium Lungs and pleural space: Left lower lobe atelectasis. No sign of infiltrate or mass. Blunting both costophrenic angles. No pneumothorax. Bones and soft tissues: No significant findings. IMPRESSION: Blunting both costophrenic angles. Left lower lobe atelectasis. Dictated by Geovanny Huynh MD @ 04/19/2017 6:17:10 PM Dictated by: Geovanny Huynh MD @ 04/19/2017 18:17:21 (Electronic Signature) Report Signed by Proxy. [facility] CENTERManjula
== END 2017-04-19 17:50 | disposition other institution (70) ==
LOC: MW.ED 16:23 → EEVIPCON 16:23 → MW.ED 17:45
DX: I24.9 Acute ischemic heart disease, unspecified (principal); I95.9 Hypotension, unspecified; E11.22 Type 2 diabetes mellitus with diabetic chronic kidney disease; N18.9 Chronic kidney disease, unspecified
CPT/HCPCS: 36415; 71045; 80053; 81001; 82550; 82553; 83605; 83880; 84484; 85025; 85610; 87040; 87804; 93005; 96361; 96365; 96372; 96375; 99291; J1650; J2270; J2543; J3370; J7040; J7050; 87077; 87186; 99284